=== PATIENT | female | born 1945 | race Caucasian/White ===

== ENCOUNTER 2016-05-27 12:45 | Inpatient (IN) | payer OTHER ==
[~2016-05-27] VITALS: Ht 160 cm; Wt 85.7 kg
[2016-05-27 13:09] VITALS: BP 147/85; PULSE 101; RESP 16; TEMP 98.2; O2SAT 96
[2016-05-27] MEDS ORDERED: CEFAZOLIN 1 GM IVPB PREMIX 50 ML IV ONE (14:00)
[2016-05-27] MEDS ORDERED: VANCOMYCIN HCL 1,000 MG in NS 250 ML IV ONE (14:00)
[2016-05-27 14:23] LABS: BASOPHILS % (AUTO) 0.3 % (0.0-2.0); EOSINOPHILS # (AUTO) 0.1 K/uL (0.0-0.4); EOSINOPHILS % (AUTO) 0.9 % (0.0-4.0); HEMOGLOBIN 10.8 g/dL (12.0-16.0); LYMPHOCYTES # (AUTO) 1.6 K/uL (1.0-5.5); LYMPHOCYTES % (AUTO) 22.4 % (20.5-51.5); MEAN CORPUSCULAR HEMOGLOBIN 27 pg (27-31); MEAN CORPUSCULAR HGB CONC 32 % (32-36); MEAN CORPUSCULAR VOLUME 85 fL (79.0-98.0); MONOCYTES # (AUTO) 0.6 K/uL (0.0-1.0); MONOCYTES % (AUTO) 8.1 % (1.7-9.3); NEUTROPHILS # (AUTO) 4.9 K/uL (1.8-7.7); NEUTROPHILS % (AUTO) 68.3 % (40.0-70.0); PLATELET COUNT (AUTO) 295 K/uL (130-430); RED BLOOD CELL COUNT(AUTO) 4.01 MIL/uL (4.2-6.2); RED CELL DISTRIBUTION WIDTH 16.8 % (9.0-15.0); WHITE BLOOD COUNT (AUTO) 7.2 K/uL (4.8-10.8)
[2016-05-27 14:38] LABS: ANION GAP 10 (5-15); CALCIUM 9.2 mg/dL (8.4-11.0); CHLORIDE 98 mmol/L (98-107); CREATININE 0.75 mg/dL (0.55-1.30); GLUCOSE 107 mg/dL (70-99); SODIUM SERUM 138 mmol/L (136-145); UREA NITROGEN, BLOOD 16 mg/dL (8-21)
[2016-05-27 14:40] LABS: PROTHROMBIN TIME 10.9 SECS (9.5-12.5)
[2016-05-27 14:49] VITALS: BP 144/96; PULSE 89; RESP 20; TEMP 97.4; O2SAT 94
[2016-05-27 14:49] LABS: ALANINE AMINOTRANSFERASE 26 U/L (12-78); ALBUMIN 3.6 g/dL (3.4-4.8); ASPARTATE AMINOTRANSFERASE 17 U/L (10-37); LIPASE 115 U/L (73-393); TOTAL BILIRUBIN 0.3 mg/dL (0.0-1.0); TOTAL PROTEIN, SERUM 8.8 g/dL (6.4-8.3)
[2016-05-27] MEDS ORDERED: LEVOFLOXACIN 500 MG/D5W 100 ML IV ONE (15:30)
[2016-05-27 15:38] VITALS: BP 144/96; PULSE 88; RESP 20; TEMP 97.4; O2SAT 94
[2016-05-27] MEDS ORDERED: HYDROCORTISONE SOD SUCC 100 MG/2 ML VIAL IVP ONE (16:00)
[2016-05-27] MEDS ORDERED: ACETAMINOPHEN 650 MG/20.3 ML UDC PO PRN (16:00)
[2016-05-27] MEDS ORDERED: METO-290 PO (16:08)
[2016-05-27] MEDS ORDERED: SULF500T8 PO (16:08)
[2016-05-27] MEDS ORDERED: POTA10CA68 PO (16:08)
[2016-05-27] MEDS ORDERED: PRED5TAB PO (16:08)
[2016-05-27] MEDS ORDERED: FOLI-43 PO (16:08)
[2016-05-27] MEDS ORDERED: DULO60CA41 PO (16:08)
[2016-05-27] MEDS ORDERED: OXYB10TA4 PO (16:08)
[2016-05-27] MEDS ORDERED: AMLO5TAB4 PO (16:08)
[2016-05-27] MEDS ORDERED: TRAM50TA2 PO (16:08)
[2016-05-27] MEDS ORDERED: FURO-150 PO (16:08)
[2016-05-27] MEDS ORDERED: PRO40 PO ×2 (16:08→16:10)
[2016-05-27] MEDS ORDERED: TRAZ-126 PO (16:08)
[2016-05-27] MEDS: PANTOPRAZOLE SODIUM 40 MG TAB PO SCH (16:25)
[2016-05-27] MEDS ORDERED: PANTOPRAZOLE SODIUM 40 MG TAB ONE (16:29)
[2016-05-27] MEDS ORDERED: METOCLOPRAMIDE HCL 10 MG TABLET PO PRN (17:30)
[2016-05-27 19:30] VITALS: BP 157/80; PULSE 102; RESP 18; TEMP 96.6; O2SAT 92
[2016-05-27] MEDS ORDERED: HYDROcodone/ACETAMIN 5-325 MG TAB (NORCO/ VICODIN) PO PRN ×2 (21:45)
[2016-05-27 21:51] LABS: BILIRUBIN,URINE NEGATIVE (NEGATIVE); BLOOD, URINE NEGATIVE (NEGATIVE); CLARITY/URINE CLEAR (CLEAR); COLOR,URINE YELLOW (YELLOW); GLUCOSE,URINE NEGATIVE (NEGATIVE); KETONES,URINE NEGATIVE (NEGATIVE); LEUKOCYTE ESTERASE ,URINE 2+ (NEGATIVE); NITRITE, URINE NEGATIVE (NEGATIVE); PROTEIN URINE NEGATIVE (NEGATIVE); UROBILINOGEN,URINE 0.2 (0.2-1.0)
[2016-05-27 21:57] LABS: BACTERIA,URINE FEW /HPF (None Seen); RBC,URINE 0-3 /HPF (0-3); WBC,URINE 20-50 /HPF (0-3)
[2016-05-27 21:58] LABS: MUCUS,URINE None Seen /LPF (None Seen)
[2016-05-27] MEDS: HYDROCORTISONE SOD SUCC 100 MG/2 ML VIAL IVP SCH (22:09)
[2016-05-27] MEDS: sulfASALAZINE 500 MG TABLET (AZULFIDINE) PO SCH (22:09)
[2016-05-27] MEDS: traZODone HCL 50 MG TABLET (DESYREL) PO SCH (22:09)
[2016-05-27] MEDS: OXYBUTYNIN CHLORIDE 5 MG TABLET PO SCH (22:10)
[2016-05-27] MEDS: HYDROcodone/ACETAMIN 5-325 MG TAB (NORCO/ VICODIN) PO PRN (22:14)
[2016-05-28] VITALS (7 sets, daily range): BP systolic 145–154; BP diastolic 74–98; PULSE 85–100; RESP 16–19; TEMP 96.8–98; O2SAT 92–98
[2016-05-28 08:19] LABS: BASOPHILS % (AUTO) 0.3 % (0.0-2.0); EOSINOPHILS % (AUTO) 0.1 % (0.0-4.0); HEMATOCRIT 33.1 % (36-48); HEMOGLOBIN 10.3 g/dL (12.0-16.0); LYMPHOCYTES # (AUTO) 1.6 K/uL (1.0-5.5); LYMPHOCYTES % (AUTO) 27.9 % (20.5-51.5); MEAN CORPUSCULAR HEMOGLOBIN 27 pg (27-31); MEAN CORPUSCULAR HGB CONC 31 % (32-36); MEAN CORPUSCULAR VOLUME 85 fL (79.0-98.0); MONOCYTES # (AUTO) 0.6 K/uL (0.0-1.0); NEUTROPHILS # (AUTO) 3.5 K/uL (1.8-7.7); NEUTROPHILS % (AUTO) 61.7 % (40.0-70.0); PLATELET COUNT (AUTO) 258 K/uL (130-430); RED BLOOD CELL COUNT(AUTO) 3.88 MIL/uL (4.2-6.2); RED CELL DISTRIBUTION WIDTH 16.8 % (9.0-15.0); WHITE BLOOD COUNT (AUTO) 5.7 K/uL (4.8-10.8)
[2016-05-28 08:45] LABS: ALANINE AMINOTRANSFERASE 20 U/L (12-78); ALBUMIN 2.8 g/dL (3.4-4.8); ANION GAP 6 (5-15); ASPARTATE AMINOTRANSFERASE 14 U/L (10-37); CALCIUM 8.9 mg/dL (8.4-11.0); CHLORIDE 101 mmol/L (98-107); GLUCOSE 114 mg/dL (70-99); POTASSIUM 3.6 mmol/L (3.5-5.1); SODIUM SERUM 139 mmol/L (136-145); THYROID STIMULATING HORMONE 0.35 uIu/mL (0.34-4.82); TOTAL BILIRUBIN 0.3 mg/dL (0.0-1.0); TOTAL PROTEIN, SERUM 7.6 g/dL (6.4-8.3); UREA NITROGEN, BLOOD 15 mg/dL (8-21)
[2016-05-28] MEDS: sulfASALAZINE 500 MG TABLET (AZULFIDINE) PO SCH ×3 (08:59→20:48)
[2016-05-28] MEDS: FOLIC ACID 1 MG TABLET PO SCH (08:59)
[2016-05-28] MEDS: OXYBUTYNIN CHLORIDE 5 MG TABLET PO SCH ×2 (09:00→20:48)
[2016-05-28] MEDS: amLODIPine BESYLATE 5 MG TABLET PO SCH (09:00)
[2016-05-28] MEDS: DULoxetine HCL 30 MG CAPSULE.DR (CYMBALTA) PO SCH (09:00)
[2016-05-28] MEDS ORDERED: OXYBUTYNIN CHLORIDE 5 MG XL TAB PO SCH (09:00)
[2016-05-28] MEDS: FUROSEMIDE 20 MG TABLET PO SCH (09:02)
[2016-05-28] MEDS: HYDROCORTISONE SOD SUCC 100 MG/2 ML VIAL IVP SCH ×2 (09:05→20:48)
[2016-05-28] MEDS: PANTOPRAZOLE SODIUM 40 MG TAB PO SCH (09:14)
[2016-05-28] MEDS: CEFTAROLINE FOSAMIL ACETATE 600 MG in NS 250 ML IV SCH ×2 (14:47→20:47)
[2016-05-28] MEDS: HYDROcodone/ACETAMIN 5-325 MG TAB (NORCO/ VICODIN) PO PRN (14:48)
[2016-05-28] MEDS: ALBUTEROL SULFATE 0.083% 2.5 MG/3 ML VIAL.NEB INH SCH ×2 (15:00→23:00)
[2016-05-28] MEDS: traZODone HCL 50 MG TABLET (DESYREL) PO SCH (20:48)
[2016-05-29] VITALS (7 sets, daily range): BP systolic 124–178; BP diastolic 70–98; PULSE 88–103; RESP 18–20; TEMP 96.7–99.8; O2SAT 90–98
[2016-05-29] MEDS: ALBUTEROL SULFATE 0.083% 2.5 MG/3 ML VIAL.NEB INH SCH ×3 (07:35→23:00)
[2016-05-29] MEDS: CEFTAROLINE FOSAMIL ACETATE 600 MG in NS 250 ML IV SCH ×2 (08:15→20:47)
[2016-05-29] MEDS: PANTOPRAZOLE SODIUM 40 MG TAB PO SCH (08:16)
[2016-05-29] MEDS: HYDROCORTISONE SOD SUCC 100 MG/2 ML VIAL IVP SCH (08:16)
[2016-05-29] MEDS: OXYBUTYNIN CHLORIDE 5 MG TABLET PO SCH ×2 (08:16→20:47)
[2016-05-29] MEDS: FOLIC ACID 1 MG TABLET PO SCH (08:16)
[2016-05-29] MEDS: FUROSEMIDE 20 MG TABLET PO SCH (08:17)
[2016-05-29] MEDS: sulfASALAZINE 500 MG TABLET (AZULFIDINE) PO SCH ×3 (08:17→20:47)
[2016-05-29] MEDS: amLODIPine BESYLATE 5 MG TABLET PO SCH (08:18)
[2016-05-29] MEDS: DULoxetine HCL 30 MG CAPSULE.DR (CYMBALTA) PO SCH (08:18)
[2016-05-29] MEDS ORDERED: cloNIDine HCL 0.1 MG TABLET PO PRN (11:30)
[2016-05-29] MEDS ORDERED: VALSARTAN 80 MG TABLET (DIOVAN) PO ONE (14:30)
[2016-05-29] MEDS: VALSARTAN 80 MG TABLET (DIOVAN) PO SCH ×2 (14:56→20:47)
[2016-05-29] MEDS: traZODone HCL 50 MG TABLET (DESYREL) PO SCH (20:47)
[2016-05-30] VITALS: BP 135/80; PULSE 88; RESP 18; TEMP 97.9; O2SAT 95
[2016-05-30 04:16] VITALS: BP 146/88; PULSE 98; RESP 20; TEMP 97.7; O2SAT 96
[2016-05-30 05:22] LABS: EOSINOPHILS # (AUTO) 0.2 K/uL (0.0-0.4)
[2016-05-30 05:29] LABS: BASOPHILS % (AUTO) 0.6 % (0.0-2.0); EOSINOPHILS % (AUTO) 2.6 % (0.0-4.0); HEMATOCRIT 34.3 % (36-48); HEMOGLOBIN 10.8 g/dL (12.0-16.0); LYMPHOCYTES # (AUTO) 1.8 K/uL (1.0-5.5); LYMPHOCYTES % (AUTO) 28.8 % (20.5-51.5); MEAN CORPUSCULAR HEMOGLOBIN 27 pg (27-31); MEAN CORPUSCULAR HGB CONC 32 % (32-36); MEAN CORPUSCULAR VOLUME 85 fL (79.0-98.0); MONOCYTES # (AUTO) 0.8 K/uL (0.0-1.0); MONOCYTES % (AUTO) 12.1 % (1.7-9.3); NEUTROPHILS # (AUTO) 3.5 K/uL (1.8-7.7); NEUTROPHILS % (AUTO) 55.9 % (40.0-70.0); PLATELET COUNT (AUTO) 259 K/uL (130-430); RED BLOOD CELL COUNT(AUTO) 4.04 MIL/uL (4.2-6.2); RED CELL DISTRIBUTION WIDTH 16.4 % (9.0-15.0); WHITE BLOOD COUNT (AUTO) 6.3 K/uL (4.8-10.8)
[2016-05-30 05:40] LABS: ANION GAP 7 (5-15); CALCIUM 8.9 mg/dL (8.4-11.0); CHLORIDE 103 mmol/L (98-107); GLUCOSE 110 mg/dL (70-99); POTASSIUM 3.2 mmol/L (3.5-5.1); SODIUM SERUM 143 mmol/L (136-145); UREA NITROGEN, BLOOD 17 mg/dL (8-21)
[2016-05-30 05:45] LABS: PROTHROMBIN TIME 10.9 SECS (9.5-12.5)
[2016-05-30] MEDS: DULoxetine HCL 30 MG CAPSULE.DR (CYMBALTA) PO SCH (07:52)
[2016-05-30] MEDS: OXYBUTYNIN CHLORIDE 5 MG TABLET PO SCH ×2 (07:52→20:58)
[2016-05-30] MEDS: FOLIC ACID 1 MG TABLET PO SCH (07:52)
[2016-05-30] MEDS: sulfASALAZINE 500 MG TABLET (AZULFIDINE) PO SCH ×3 (07:52→20:56)
[2016-05-30] MEDS: VALSARTAN 80 MG TABLET (DIOVAN) PO SCH ×2 (07:52→20:58)
[2016-05-30] MEDS: FUROSEMIDE 20 MG TABLET PO SCH (07:53)
[2016-05-30] MEDS: amLODIPine BESYLATE 5 MG TABLET PO SCH (07:53)
[2016-05-30] MEDS: PREDNISONE 10 MG TABLET PO SCH (07:53)
[2016-05-30] MEDS: PANTOPRAZOLE SODIUM 40 MG TAB PO SCH (07:53)
[2016-05-30] MEDS ORDERED: KCL IV ONE (08:30)
[2016-05-30] MEDS ORDERED: POTASSIUM CHLORIDE IV ONE (09:00)
[2016-05-30] MEDS ORDERED: NS 0.45% IV ONE (09:00)
[2016-05-30] MEDS: CEFTAROLINE FOSAMIL ACETATE 600 MG in NS 250 ML IV SCH ×2 (11:05→20:56)
[2016-05-30 12:00] VITALS: BP 151/97; PULSE 96; RESP 16; TEMP 97.4; O2SAT 98
[2016-05-30] MEDS ORDERED: LABETALOL 100 MG/ 20ML VIAL ONE (14:00)
[2016-05-30] MEDS ORDERED: NS IRRIG SOLN 1000 ML IR ONE (14:00)
[2016-05-30] MEDS ORDERED: MIDAZOLAM HCL 5 MG/5 ML VIAL ONE (14:00)
[2016-05-30] MEDS ORDERED: MEPERIDINE HCL/PF 100 MG/ML AMP ONE (14:00)
[2016-05-30] MEDS ORDERED: PROPOFOL 200MG/ 20ML VIAL (DIPRIVAN) IV ONE (14:00)
[2016-05-30] MEDS ORDERED: LR 1,000 ML IV.SOLN IV ONE (14:00)
[2016-05-30] MEDS ORDERED: LIDOCAINE 2%, 20 ML MDV ONE (14:00)
[2016-05-30] MEDS ORDERED: LR 1,000 ML IV ONE (14:53)
[2016-05-30] MEDS ORDERED: KETOROLAC TROMETHAMINE 30 MG VIAL IM PRN (15:00)
[2016-05-30] MEDS ORDERED: fentaNYL CITRATE/PF 100 MCG/2 ML AMP IVP PRN (15:00)
[2016-05-30] MEDS ORDERED: ONDANSETRON HCL 4 MG/2 ML VIAL IVP PRN ×2 (15:00)
[2016-05-30] MEDS ORDERED: ePHEDrine sulfate 50 MG/ML VIAL IVP PRN (15:00)
[2016-05-30] MEDS ORDERED: NALBUPHINE HCL 10 MG/ML AMP IVP PRN (15:00)
[2016-05-30] MEDS ORDERED: NALOXONE HCL 0.4 MG/ML AMP (NARCAN) IVP PRN (15:00)
[2016-05-30] MEDS ORDERED: DIPHENHYDRAMINE INJ 50 MG/ML VIAL IVP PRN (15:00)
[2016-05-30] MEDS: HYDROcodone/ACETAMIN 5-325 MG TAB (NORCO/ VICODIN) PO PRN (15:47)
[2016-05-30 16:22] VITALS: BP 159/79; PULSE 71; RESP 20; TEMP 99; O2SAT 96
[2016-05-30 17:05] LABS: INR 1.1 (0.8-1.2); PROTHROMBIN TIME 11.5 SECS (9.5-12.5)
[2016-05-30 19:00] VITALS: BP 139/85; PULSE 74; RESP 16; TEMP 97.3; O2SAT 95
[2016-05-30 20:00] VITALS: BP 156/83; PULSE 84; RESP 16; TEMP 97.6; O2SAT 95
[2016-05-30] MEDS: HEPARIN SODIUM,PORCINE 5000 UNITS/ML VIAL SUBCUT SCH (20:55)
[2016-05-30] MEDS: traZODone HCL 50 MG TABLET (DESYREL) PO SCH (20:57)
[2016-05-30] MEDS: ALBUTEROL SULFATE 0.083% 2.5 MG/3 ML VIAL.NEB INH SCH (23:00)
[2016-05-31] VITALS: BP 143/84; PULSE 85; RESP 16; TEMP 97.5; O2SAT 94
[2016-05-31 04:00] VITALS: BP 147/92; PULSE 93; RESP 16; TEMP 97.6; O2SAT 93
[2016-05-31] MEDS: ALBUTEROL SULFATE 0.083% 2.5 MG/3 ML VIAL.NEB INH SCH ×2 (07:00→14:56)
[2016-05-31 07:48] LABS: BASOPHILS % (AUTO) 0.6 % (0.0-2.0); EOSINOPHILS # (AUTO) 0.2 K/uL (0.0-0.4); EOSINOPHILS % (AUTO) 2.3 % (0.0-4.0); HEMATOCRIT 39.7 % (36-48); HEMOGLOBIN 12.2 g/dL (12.0-16.0); LYMPHOCYTES % (AUTO) 31.2 % (20.5-51.5); MEAN CORPUSCULAR HEMOGLOBIN 26 pg (27-31); MEAN CORPUSCULAR HGB CONC 31 % (32-36); MEAN CORPUSCULAR VOLUME 86 fL (79.0-98.0); MONOCYTES # (AUTO) 0.6 K/uL (0.0-1.0); MONOCYTES % (AUTO) 8.8 % (1.7-9.3); NEUTROPHILS # (AUTO) 3.8 K/uL (1.8-7.7); NEUTROPHILS % (AUTO) 57.1 % (40.0-70.0); PLATELET COUNT (AUTO) 359 K/uL (130-430); RED BLOOD CELL COUNT(AUTO) 4.63 MIL/uL (4.2-6.2); RED CELL DISTRIBUTION WIDTH 17.2 % (9.0-15.0); WHITE BLOOD COUNT (AUTO) 6.6 K/uL (4.8-10.8)
[2016-05-31 08:04] VITALS: BP 151/81; PULSE 120
[2016-05-31 08:08] VITALS: BP 151/81; PULSE 99; RESP 18; TEMP 97.9; O2SAT 96
[2016-05-31 08:29] LABS: ANION GAP 9 (5-15); CALCIUM 9.8 mg/dL (8.4-11.0); CHLORIDE 102 mmol/L (98-107); GLUCOSE 130 mg/dL (70-99); POTASSIUM 3.5 mmol/L (3.5-5.1); SODIUM SERUM 140 mmol/L (136-145); UREA NITROGEN, BLOOD 14 mg/dL (8-21)
[2016-05-31] MEDS: PANTOPRAZOLE SODIUM 40 MG TAB PO SCH (08:29)
[2016-05-31] MEDS: CEFTAROLINE FOSAMIL ACETATE 600 MG in NS 250 ML IV SCH (08:29)
[2016-05-31] MEDS: sulfASALAZINE 500 MG TABLET (AZULFIDINE) PO SCH ×2 (08:29→15:00)
[2016-05-31] MEDS: amLODIPine BESYLATE 5 MG TABLET PO SCH (08:30)
[2016-05-31] MEDS: FOLIC ACID 1 MG TABLET PO SCH (08:30)
[2016-05-31] MEDS: VALSARTAN 80 MG TABLET (DIOVAN) PO SCH (08:30)
[2016-05-31] MEDS: DULoxetine HCL 30 MG CAPSULE.DR (CYMBALTA) PO SCH (08:31)
[2016-05-31] MEDS: FUROSEMIDE 20 MG TABLET PO SCH (08:31)
[2016-05-31] MEDS: OXYBUTYNIN CHLORIDE 5 MG TABLET PO SCH (08:31)
[2016-05-31] MEDS: PREDNISONE 10 MG TABLET PO SCH (08:31)
[2016-05-31] MEDS: HEPARIN SODIUM,PORCINE 5000 UNITS/ML VIAL SUBCUT SCH (08:34)
[2016-05-31 12:00] VITALS: BP 154/79; PULSE 111; RESP 18; TEMP 98.2; O2SAT 94
[2016-05-31] MEDS ORDERED: ROCPM1 IV (13:50)
[2016-05-31 14:12] VITALS: BP 154/79; PULSE 111; RESP 18; TEMP 98.2; O2SAT 94
[2016-05-31 15:33] VITALS: Ht 160 cm; Wt 85.7 kg
== END 2016-05-31 16:10 | disposition home health service (06) | DRG 464 ==
LOC: SED 12:45 → SMU 14:06 → STU 14:40 → SMU 05-29 12:00
PROVIDERS: ADMIT Internal Medicine; ATTEND Internal Medicine
PROC: 0S9D3ZZ Drainage of Left Knee Joint, Percutaneous Approach (ICD-10-PCS; principal; 2016-05-27)
PROC: 0JBP0ZZ Excision of Left Lower Leg Subcutaneous Tissue and Fascia, Open Approach (ICD-10-PCS; 2016-05-30)
DX: M71.162 Other infective bursitis, left knee (principal); N39.0 Urinary tract infection, site not specified; M79.7 Fibromyalgia; M06.9 Rheumatoid arthritis, unspecified; J20.9 Acute bronchitis, unspecified; K21.9 Gastro-esophageal reflux disease without esophagitis; I87.8 Other specified disorders of veins; I73.9 Peripheral vascular disease, unspecified; D50.9 Iron deficiency anemia, unspecified; B96.4 Proteus (mirabilis) (morganii) as the cause of diseases classified elsewhere; F32.9 Major depressive disorder, single episode, unspecified; M19.90 Unspecified osteoarthritis, unspecified site; H40.9 Unspecified glaucoma; I10 Essential (primary) hypertension; Z96.643 Presence of artificial hip joint, bilateral; Z96.653 Presence of artificial knee joint, bilateral; Z79.52 Long term (current) use of systemic steroids; Z82.0 Family history of epilepsy and other diseases of the nervous system; Z87.11 Personal history of peptic ulcer disease; Z88.0 Allergy status to penicillin; Z90.49 Acquired absence of other specified parts of digestive tract; Z90.710 Acquired absence of both cervix and uterus; Z98.1 Arthrodesis status; Z82.49 Family history of ischemic heart disease and other diseases of the circulatory system
CPT/HCPCS: 36415; 71010; 73590-TC; 80048; 80053; 81000-TC; 83605; 83690-TC; 83735-TC; 84443-TC; 85025; 85610-TC; 85651-TC; 85730-TC; 86140; 87040-TC; 87070; 87070-TC; 87075-TC; 87081; 87086; 87101; 87116; 87186-TC; 93005; 93971; 96365; 96368; 99285; J0690; J0696; J0712; J1644; J1720; J1885; J1956; J2001; J2175; J2250; J2704; J3370; J3480; J3490; J7040; J7050; J7060; J7120; J7512

== ENCOUNTER 2016-07-04 09:53 | Inpatient (IN) | payer OTHER ==
[~2016-07-04] VITALS: Ht 162.6 cm; Wt 88.5 kg
[~2016-07-04 09:53] MED LIST: AMLO5TAB4 PO; DULO60CA41 PO; FOLI-43 PO; FURO-150 PO; METO-290 PO; OXYB10TA4 PO; POTA10CA68 PO; PRED5TAB PO; PRO40 PO; ROCPM1 IV; SULF500T8 PO; TRAM50TA2 PO; TRAZ-126 PO
[2016-07-04 10:50] LABS: BASOPHILS % (AUTO) 0.5 % (0.0-2.0); EOSINOPHILS # (AUTO) 0.1 K/uL (0.0-0.4); EOSINOPHILS % (AUTO) 1.3 % (0.0-4.0); HEMATOCRIT 33.6 % (36-48); HEMOGLOBIN 10.3 g/dL (12.0-16.0); LYMPHOCYTES # (AUTO) 1.5 K/uL (1.0-5.5); MEAN CORPUSCULAR HEMOGLOBIN 26 pg (27-31); MEAN CORPUSCULAR HGB CONC 31 % (32-36); MEAN CORPUSCULAR VOLUME 84 fL (79.0-98.0); MONOCYTES # (AUTO) 0.7 K/uL (0.0-1.0); MONOCYTES % (AUTO) 8.3 % (1.7-9.3); NEUTROPHILS # (AUTO) 6.1 K/uL (1.8-7.7); NEUTROPHILS % (AUTO) 71.9 % (40.0-70.0); PLATELET COUNT (AUTO) 422 K/uL (130-430); RED BLOOD CELL COUNT(AUTO) 3.98 MIL/uL (4.2-6.2); RED CELL DISTRIBUTION WIDTH 16.6 % (9.0-15.0); WHITE BLOOD COUNT (AUTO) 8.4 K/uL (4.8-10.8)
[2016-07-04 10:59] LABS: ANION GAP 4 (5-15); CALCIUM 9.4 mg/dL (8.4-11.0); CHLORIDE 100 mmol/L (98-107); CREATININE 0.88 mg/dL (0.55-1.30); GLUCOSE 129 mg/dL (70-99); POTASSIUM 3.9 mmol/L (3.5-5.1); SODIUM SERUM 137 mmol/L (136-145); UREA NITROGEN, BLOOD 14 mg/dL (8-21)
[2016-07-04 11:20] LABS: C-REACTIVE PROTEIN QUANT 21.7 mg/dL (0-0.5)
[2016-07-04 11:43] LABS: ERYTHROCYTE SEDIMENTATION RATE 98 MM/HR (0-20)
[2016-07-04] MEDS ORDERED: HYDROCORTISONE SOD SUCC 100 MG/2 ML VIAL IVP ONE ×2 (12:30→13:50)
[2016-07-04] MEDS ORDERED: LOSA50TA3 PO (12:41)
[2016-07-04] MEDS ORDERED: METO-442 PO (12:41)
[2016-07-04] MEDS ORDERED: AZU500 PO (12:43)
[2016-07-04] MEDS ORDERED: MIDAZOLAM HCL 5 MG/5 ML VIAL IVP ONE (13:50)
[2016-07-04] MEDS ORDERED: SEVOFLURANE 15 MIN GAS INH ONE (13:50)
[2016-07-04] MEDS ORDERED: ROCURONIUM BROMIDE 10 MG/ML (ZEMURON) IV ONE (13:50)
[2016-07-04] MEDS ORDERED: DEXAMETHASONE SOD PHOSPHATE 4 MG/ML VIAL IVP ONE (13:50)
[2016-07-04] MEDS ORDERED: fentaNYL CITRATE 250 MCG/5 ML AMP IV ONE (13:50)
[2016-07-04] MEDS ORDERED: PROPOFOL 200MG/ 20ML VIAL (DIPRIVAN) IV ONE (13:50)
[2016-07-04] MEDS ORDERED: LR 1,000 ML IV.SOLN IV ONE (13:50)
[2016-07-04] MEDS ORDERED: ONDANSETRON HCL 4 MG/2 ML VIAL IVP ONE (13:50)
[2016-07-04] MEDS ORDERED: KETOROLAC TROMETHAMINE 15 MG VIAL IVP ONE (13:50)
[2016-07-04] MEDS ORDERED: POLYMYXIN 500,000/BACIT.10,000 UNITS in NS IRR 1 L IR ONE (14:14)
[2016-07-04] MEDS ORDERED: MILK OF MAGNESIA 30 ML UDC PO PRN (15:45)
[2016-07-04] MEDS ORDERED: METOCLOPRAMIDE HCL 10 MG TABLET PO PRN (15:45)
[2016-07-04] MEDS ORDERED: ACETAMINOPHEN 500 MG TABLET PO PRN (15:45)
[2016-07-04] MEDS ORDERED: LR 1,000 ML IV SCH (15:57)
[2016-07-04] MEDS ORDERED: HYDROmorphone 1 MG INJ. 1 MG/ML AMPUL IVP PRN (16:00)
[2016-07-04] MEDS ORDERED: MEPERIDINE HCL/PF 25 MG/ML DISP.SYRIN IVP PRN (16:00)
[2016-07-04] MEDS ORDERED: HYDROmorphone 2 MG/ML VIAL IVP PRN ×2 (16:00)
[2016-07-04] MEDS ORDERED: HYDROmorphone 1 MG INJ. 1 MG/ML AMPUL ONE ×2 (16:09→16:21)
[2016-07-04 17:33] VITALS: BP_SYST 156
[2016-07-04] MEDS: D5/0.45 NS 1,000 ML IV SCH (18:10)
[2016-07-04] MEDS: PANTOPRAZOLE SODIUM 40 MG TAB PO SCH (18:57)
[2016-07-04 20:00] VITALS: BP_SYST 145
[2016-07-04] MEDS: CEFTAROLINE FOSAMIL ACETATE 600 MG in NS 250 ML IV SCH (21:00)
[2016-07-04] MEDS ORDERED: sulfASALAZINE 500 MG TABLET (AZULFIDINE) PO SCH ×2 (21:00)
[2016-07-04] MEDS: traMADol HCL HCL 50 MG TABLET (ULTRAM) PO SCH (21:01)
[2016-07-04] MEDS: HYDROCORTISONE SOD SUCC 100 MG/2 ML VIAL IVP SCH (21:01)
[2016-07-04] MEDS: SENNOSIDES 8.6 MG TABLET PO SCH (21:01)
[2016-07-04] MEDS: ASCORBIC ACID 500 MG TABLET PO SCH (21:01)
[2016-07-04] MEDS: OXYBUTYNIN CHLORIDE 5 MG TABLET PO SCH (21:02)
[2016-07-04] MEDS: traZODone HCL 50 MG TABLET (DESYREL) PO SCH (21:02)
[2016-07-04 22:34] VITALS: BP_SYST 132
[2016-07-05 03:59] VITALS: BP_SYST 152
[2016-07-05 06:32] LABS: BASOPHILS % (AUTO) 0.1 % (0.0-2.0); EOSINOPHILS % (AUTO) 0.1 % (0.0-4.0); HEMATOCRIT 27.8 % (36-48); HEMOGLOBIN 8.7 g/dL (12.0-16.0); LYMPHOCYTES # (AUTO) 0.8 K/uL (1.0-5.5); LYMPHOCYTES % (AUTO) 15.1 % (20.5-51.5); MEAN CORPUSCULAR HEMOGLOBIN 27 pg (27-31); MEAN CORPUSCULAR HGB CONC 31 % (32-36); MEAN CORPUSCULAR VOLUME 85 fL (79.0-98.0); MONOCYTES # (AUTO) 0.3 K/uL (0.0-1.0); MONOCYTES % (AUTO) 5.3 % (1.7-9.3); NEUTROPHILS # (AUTO) 4.5 K/uL (1.8-7.7); NEUTROPHILS % (AUTO) 79.4 % (40.0-70.0); PLATELET COUNT (AUTO) 338 K/uL (130-430); RED BLOOD CELL COUNT(AUTO) 3.26 MIL/uL (4.2-6.2); RED CELL DISTRIBUTION WIDTH 16.5 % (9.0-15.0); WHITE BLOOD COUNT (AUTO) 5.6 K/uL (4.8-10.8)
[2016-07-05] MEDS: HYDROCORTISONE SOD SUCC 100 MG/2 ML VIAL IVP SCH ×3 (06:32→20:49)
[2016-07-05] MEDS: PANTOPRAZOLE SODIUM 40 MG TAB PO SCH ×2 (06:32→16:45)
[2016-07-05] MEDS ORDERED: MORPHINE 2 MG/ML INJ. SYRINGE IVP ONE (07:00)
[2016-07-05 08:00] VITALS: BP_SYST 146
[2016-07-05] MEDS: D5/0.45 NS 1,000 ML IV SCH ×2 (08:39→11:35)
[2016-07-05] MEDS: DULoxetine HCL 30 MG CAPSULE.DR (CYMBALTA) PO SCH (08:47)
[2016-07-05] MEDS: CEFTAROLINE FOSAMIL ACETATE 600 MG in NS 250 ML IV SCH ×2 (08:47→20:49)
[2016-07-05] MEDS: LOSARTAN POTASSIUM 50 MG TABLET (COZAAR) PO SCH (08:48)
[2016-07-05] MEDS: METOPROLOL TARTRATE 25 MG TABLET PO SCH ×2 (08:48→20:50)
[2016-07-05] MEDS: MULTIVITAMINS TAB 1 TABLET PO SCH (08:48)
[2016-07-05] MEDS: ASCORBIC ACID 500 MG TABLET PO SCH ×2 (08:49→20:50)
[2016-07-05] MEDS: amLODIPine BESYLATE 5 MG TABLET PO SCH (08:49)
[2016-07-05] MEDS: FOLIC ACID 1 MG TABLET PO SCH (08:49)
[2016-07-05] MEDS: traMADol HCL HCL 50 MG TABLET (ULTRAM) PO SCH ×3 (08:49→20:51)
[2016-07-05] MEDS: OXYBUTYNIN CHLORIDE 5 MG TABLET PO SCH ×2 (08:49→20:51)
[2016-07-05] MEDS ORDERED: POTASSIUM CHLORIDE 20 MEQ/PKT PACKET PO SCH (09:00)
[2016-07-05] MEDS ORDERED: POTASSIUM CHLORIDE 20 MEQ PO SCH (09:00)
[2016-07-05] MEDS ORDERED: FUROSEMIDE 20 MG TABLET PO SCH (09:00)
[2016-07-05] MEDS ORDERED: METOPROLOL TARTRATE 50 MG TABLET PO SCH (09:00)
[2016-07-05] MEDS ORDERED: OXYBUTYNIN CHLORIDE 5 MG XL TAB PO SCH (09:00)
[2016-07-05] MEDS ORDERED: PREDNISONE 5 MG TABLET PO SCH (09:00)
[2016-07-05 10:17] LABS: ALANINE AMINOTRANSFERASE 143 U/L (12-78); ALBUMIN 2.4 g/dL (3.4-4.8); ANION GAP 2 (5-15); ASPARTATE AMINOTRANSFERASE 97 U/L (10-37); CALCIUM 8.5 mg/dL (8.4-11.0); CHLORIDE 103 mmol/L (98-107); CREATININE 0.76 mg/dL (0.55-1.30); GLUCOSE 160 mg/dL (70-99); POTASSIUM 4.5 mmol/L (3.5-5.1); SODIUM SERUM 139 mmol/L (136-145); TOTAL BILIRUBIN 0.2 mg/dL (0.0-1.0); UREA NITROGEN, BLOOD 20 mg/dL (8-21)
[2016-07-05 12:22] VITALS: BP_SYST 146
[2016-07-05 16:00] VITALS: BP_SYST 154
[2016-07-05] MEDS: MORPHINE 2 MG/ML INJ. SYRINGE IVP PRN (16:45)
[2016-07-05 20:00] VITALS: BP_SYST 141
[2016-07-05] MEDS: FERROUS SULFATE 325 MG TABLET.DR PO SCH (20:51)
[2016-07-05] MEDS: SENNOSIDES 8.6 MG TABLET PO SCH (20:51)
[2016-07-05] MEDS: traZODone HCL 50 MG TABLET (DESYREL) PO SCH (20:52)
[2016-07-06] VITALS: BP_SYST 139
[2016-07-06] MEDS: MORPHINE 2 MG/ML INJ. SYRINGE IVP PRN (02:03)
[2016-07-06 04:00] VITALS: BP_SYST 145
[2016-07-06] MEDS: PANTOPRAZOLE SODIUM 40 MG TAB PO SCH ×2 (06:10→17:13)
[2016-07-06 06:48] LABS: BASOPHILS % (AUTO) 0.2 % (0.0-2.0); EOSINOPHILS % (AUTO) 0.2 % (0.0-4.0); HEMATOCRIT 27.3 % (36-48); HEMOGLOBIN 8.7 g/dL (12.0-16.0); LYMPHOCYTES # (AUTO) 1.5 K/uL (1.0-5.5); MEAN CORPUSCULAR HEMOGLOBIN 27 pg (27-31); MEAN CORPUSCULAR HGB CONC 32 % (32-36); MEAN CORPUSCULAR VOLUME 85 fL (79.0-98.0); MONOCYTES # (AUTO) 0.4 K/uL (0.0-1.0); MONOCYTES % (AUTO) 6.2 % (1.7-9.3); NEUTROPHILS # (AUTO) 4.7 K/uL (1.8-7.7); NEUTROPHILS % (AUTO) 71.4 % (40.0-70.0); PLATELET COUNT (AUTO) 311 K/uL (130-430); RED BLOOD CELL COUNT(AUTO) 3.19 MIL/uL (4.2-6.2); RED CELL DISTRIBUTION WIDTH 16.5 % (9.0-15.0); WHITE BLOOD COUNT (AUTO) 6.6 K/uL (4.8-10.8)
[2016-07-06 07:02] LABS: ALANINE AMINOTRANSFERASE 92 U/L (12-78); ALBUMIN 2.5 g/dL (3.4-4.8); ANION GAP 5 (5-15); ASPARTATE AMINOTRANSFERASE 37 U/L (10-37); BILIRUBIN,DIRECT 0.1 mg/dL (0.0-0.3); CALCIUM 8.6 mg/dL (8.4-11.0); CHLORIDE 103 mmol/L (98-107); CREATININE 0.65 mg/dL (0.55-1.30); GLUCOSE 122 mg/dL (70-99); POTASSIUM 3.3 mmol/L (3.5-5.1); SODIUM SERUM 140 mmol/L (136-145); TOTAL BILIRUBIN 0.2 mg/dL (0.0-1.0); TOTAL PROTEIN, SERUM 7.1 g/dL (6.4-8.3); UREA NITROGEN, BLOOD 14 mg/dL (8-21)
[2016-07-06 08:50] VITALS: BP_SYST 159
[2016-07-06] MEDS: HYDROCORTISONE SOD SUCC 100 MG/2 ML VIAL IVP SCH ×2 (08:54→21:35)
[2016-07-06] MEDS: CEFTAROLINE FOSAMIL ACETATE 600 MG in NS 250 ML IV SCH ×2 (08:54→21:33)
[2016-07-06] MEDS: FERROUS SULFATE 325 MG TABLET.DR PO SCH ×2 (08:54→21:33)
[2016-07-06] MEDS: amLODIPine BESYLATE 5 MG TABLET PO SCH (08:54)
[2016-07-06] MEDS: traMADol HCL HCL 50 MG TABLET (ULTRAM) PO SCH ×3 (08:55→21:33)
[2016-07-06] MEDS: FOLIC ACID 1 MG TABLET PO SCH (08:55)
[2016-07-06] MEDS: LOSARTAN POTASSIUM 50 MG TABLET (COZAAR) PO SCH (08:55)
[2016-07-06] MEDS: DULoxetine HCL 30 MG CAPSULE.DR (CYMBALTA) PO SCH (08:55)
[2016-07-06] MEDS: METOPROLOL TARTRATE 25 MG TABLET PO SCH ×2 (08:56→21:34)
[2016-07-06] MEDS: MULTIVITAMINS TAB 1 TABLET PO SCH (08:56)
[2016-07-06] MEDS: OXYBUTYNIN CHLORIDE 5 MG TABLET PO SCH ×2 (08:56→21:34)
[2016-07-06] MEDS: ASCORBIC ACID 500 MG TABLET PO SCH ×2 (08:56→21:33)
[2016-07-06] MEDS: D5/0.45 NS 1,000 ML IV SCH (09:10)
[2016-07-06 12:25] VITALS: BP_SYST 149
[2016-07-06] MEDS ORDERED: POTASSIUM CHLORIDE 20 MEQ TAB.PRT.SR PO ONE (13:45)
[2016-07-06 16:50] VITALS: BP_SYST 148
[2016-07-06 20:00] VITALS: BP_SYST 148
[2016-07-06] MEDS: traZODone HCL 50 MG TABLET (DESYREL) PO SCH (21:34)
[2016-07-06] MEDS: SENNOSIDES 8.6 MG TABLET PO SCH (21:34)
[2016-07-07 01:00] VITALS: BP_SYST 156
[2016-07-07 05:49] VITALS: BP_SYST 150
[2016-07-07] MEDS: MORPHINE 2 MG/ML INJ. SYRINGE IVP PRN (05:49)
[2016-07-07] MEDS: PANTOPRAZOLE SODIUM 40 MG TAB PO SCH ×2 (05:52→18:45)
[2016-07-07 06:38] LABS: BASOPHILS % (AUTO) 0.3 % (0.0-2.0); EOSINOPHILS % (AUTO) 0.7 % (0.0-4.0); HEMATOCRIT 29.3 % (36-48); HEMOGLOBIN 9.2 g/dL (12.0-16.0); LYMPHOCYTES # (AUTO) 1.5 K/uL (1.0-5.5); LYMPHOCYTES % (AUTO) 25.3 % (20.5-51.5); MEAN CORPUSCULAR HEMOGLOBIN 27 pg (27-31); MEAN CORPUSCULAR HGB CONC 32 % (32-36); MEAN CORPUSCULAR VOLUME 85 fL (79.0-98.0); MONOCYTES # (AUTO) 0.5 K/uL (0.0-1.0); MONOCYTES % (AUTO) 9.2 % (1.7-9.3); NEUTROPHILS % (AUTO) 64.5 % (40.0-70.0); PLATELET COUNT (AUTO) 334 K/uL (130-430); RED BLOOD CELL COUNT(AUTO) 3.43 MIL/uL (4.2-6.2); RED CELL DISTRIBUTION WIDTH 16.4 % (9.0-15.0)
[2016-07-07 07:24] LABS: ANION GAP 6 (5-15); CALCIUM 8.7 mg/dL (8.4-11.0); CHLORIDE 103 mmol/L (98-107); GLUCOSE 113 mg/dL (70-99); POTASSIUM 3.5 mmol/L (3.5-5.1); SODIUM SERUM 141 mmol/L (136-145); UREA NITROGEN, BLOOD 15 mg/dL (8-21)
[2016-07-07 08:00] VITALS: BP_SYST 154
[2016-07-07] MEDS: MULTIVITAMINS TAB 1 TABLET PO SCH (08:54)
[2016-07-07] MEDS: FERROUS SULFATE 325 MG TABLET.DR PO SCH ×2 (08:55→21:01)
[2016-07-07] MEDS: FOLIC ACID 1 MG TABLET PO SCH (08:55)
[2016-07-07] MEDS: LOSARTAN POTASSIUM 50 MG TABLET (COZAAR) PO SCH (08:55)
[2016-07-07] MEDS: DULoxetine HCL 30 MG CAPSULE.DR (CYMBALTA) PO SCH (08:55)
[2016-07-07] MEDS: OXYBUTYNIN CHLORIDE 5 MG TABLET PO SCH ×2 (08:55→21:01)
[2016-07-07] MEDS: ASCORBIC ACID 500 MG TABLET PO SCH ×2 (08:56→21:00)
[2016-07-07] MEDS: traMADol HCL HCL 50 MG TABLET (ULTRAM) PO SCH ×3 (08:56→21:01)
[2016-07-07] MEDS: METOPROLOL TARTRATE 25 MG TABLET PO SCH ×2 (08:57→21:02)
[2016-07-07] MEDS: amLODIPine BESYLATE 5 MG TABLET PO SCH (08:57)
[2016-07-07] MEDS: HYDROCORTISONE SOD SUCC 100 MG/2 ML VIAL IVP SCH (09:14)
[2016-07-07] MEDS: CEFTAROLINE FOSAMIL ACETATE 600 MG in NS 250 ML IV SCH ×2 (09:14→21:08)
[2016-07-07 12:19] LABS: INR 1.1 (0.8-1.2); PROTHROMBIN TIME 11.5 SECS (9.5-12.5)
[2016-07-07 12:35] VITALS: BP_SYST 150
[2016-07-07 16:38] VITALS: BP_SYST 135
[2016-07-07 20:30] VITALS: BP_SYST 140
[2016-07-07] MEDS: traZODone HCL 50 MG TABLET (DESYREL) PO SCH (21:01)
[2016-07-07] MEDS: SENNOSIDES 8.6 MG TABLET PO SCH (21:02)
[2016-07-08 00:09] VITALS: BP_SYST 141
[2016-07-08 05:01] VITALS: BP_SYST 154
[2016-07-08] MEDS: PANTOPRAZOLE SODIUM 40 MG TAB PO SCH ×2 (06:36→16:07)
[2016-07-08 08:23] VITALS: BP_SYST 141
[2016-07-08] MEDS: DULoxetine HCL 30 MG CAPSULE.DR (CYMBALTA) PO SCH (08:35)
[2016-07-08] MEDS: LOSARTAN POTASSIUM 50 MG TABLET (COZAAR) PO SCH (08:35)
[2016-07-08] MEDS: traMADol HCL HCL 50 MG TABLET (ULTRAM) PO SCH ×2 (08:35→16:07)
[2016-07-08] MEDS: FERROUS SULFATE 325 MG TABLET.DR PO SCH (08:36)
[2016-07-08] MEDS: amLODIPine BESYLATE 5 MG TABLET PO SCH (08:36)
[2016-07-08] MEDS: OXYBUTYNIN CHLORIDE 5 MG TABLET PO SCH (08:36)
[2016-07-08] MEDS: FOLIC ACID 1 MG TABLET PO SCH (08:36)
[2016-07-08] MEDS: MULTIVITAMINS TAB 1 TABLET PO SCH (08:36)
[2016-07-08] MEDS: ASCORBIC ACID 500 MG TABLET PO SCH (08:36)
[2016-07-08] MEDS: METOPROLOL TARTRATE 25 MG TABLET PO SCH (08:37)
[2016-07-08] MEDS: CEFTAROLINE FOSAMIL ACETATE 600 MG in NS 250 ML IV SCH (08:59)
[2016-07-08] MEDS ORDERED: PREDNISONE 10 MG TABLET PO SCH (09:00)
[2016-07-08] MEDS ORDERED: HYDROcodone/ACETAMIN 5-325 MG TAB (NORCO/ VICODIN) PO ONE (11:45)
[2016-07-08 12:55] VITALS: BP_SYST 146
[2016-07-08 17:16] VITALS: BP_SYST 150
[2016-07-08 17:26] VITALS: BP_SYST 150
== END 2016-07-08 18:05 | disposition short-term general hospital (02) | DRG 485 ==
LOC: SDS 09:53 → SMU 17:41
PROVIDERS: ADMIT Orthopaedic Surgery; ATTEND Orthopaedic Surgery
PROC: 0S9D0ZX Drainage of Left Knee Joint, Open Approach, Diagnostic (ICD-10-PCS; 2016-07-04)
PROC: 0SBD0ZZ Excision of Left Knee Joint, Open Approach (ICD-10-PCS; principal; 2016-07-04 14:00)
DX: T84.54XA Infection and inflammatory reaction due to internal left knee prosthesis, initial encounter (principal); E43 Unspecified severe protein-calorie malnutrition; L02.416 Cutaneous abscess of left lower limb; I10 Essential (primary) hypertension; I73.9 Peripheral vascular disease, unspecified; I87.2 Venous insufficiency (chronic) (peripheral); M06.9 Rheumatoid arthritis, unspecified; M79.7 Fibromyalgia; Z79.52 Long term (current) use of systemic steroids; Z82.0 Family history of epilepsy and other diseases of the nervous system; Z87.11 Personal history of peptic ulcer disease; Z90.49 Acquired absence of other specified parts of digestive tract; Z90.710 Acquired absence of both cervix and uterus; Z96.643 Presence of artificial hip joint, bilateral; Z96.653 Presence of artificial knee joint, bilateral; Z98.1 Arthrodesis status
CPT/HCPCS: 36415; 71010; 73560-TC; 73700-TC; 76700-TC; 78315; 80048; 80053; 80076; 83735-TC; 85025; 85610-TC; 85651-TC; 85730-TC; 86140; 86886; 86900; 86901; 86920; 87070-TC; 87075-TC; 87081; 87101; 87116; 93005; A9503; C1751; C1769; J0712; J1100; J1170; J1720; J1885; J2250; J2270; J2405; J2704; J3010; J7050; J7120; J7512

== ENCOUNTER 2016-07-21 00:35 | Inpatient (IN) | payer OTHER ==
[2016-05-31 15:33] VITALS: Ht 162.6 cm; Wt 90.7 kg
[~2016-07-21] VITALS: Ht 162.6 cm; Wt 90.7 kg
[2016-07-21] VITALS (24 sets, daily range): BP systolic 76–158; BP diastolic 36–97; PULSE 78–101; RESP 15–33; TEMP 97.5–99.3; O2SAT 90–100
[~2016-07-21 00:35] MED LIST changes: +AZU500 PO; +LOSA50TA3 PO; +METO-442 PO
--- NOTE | 2016-07-21 00:38 | NUR ---
Placed in room 01 . Placed on chassis inspector, blood pressure machine and pulse oximeter. To gown for exam. Side rails up. Report given to ZAINA Farrell.
--- NOTE | 2016-07-21 00:40 | NUR ---
ER at bedside examining patient.
--- NOTE | 2016-07-21 00:43 | NUR ---
Patient brought to ER by ambulance from [facility] for hypotension. Per EMT staff went to give pm BP meds and patient was hypotensive. In ER patient BP 76/36. Patient in reversed trendelenburg. Patient has left upper arm PICC line and 20G right forearm placed by EMT. Patient also has an unproductive cough. Patient is AAOx4, states left leg surgery about 1 wek ago at [facility] for rehabilitation. Bilateral lower legs cap refill >3sec. Left leg knee immobilizer & WONG wrap. Addendum: 07/21/16 at 0158 by GIFTY Patient is from [facility]. NOT [facility]
[2016-07-21] MEDS ORDERED: NS 1000 ML BAG IV ONE (00:45)
--- NOTE | 2016-07-21 00:45 | NUR ---
# 20 gauge angiocath placed to right ac. Use of asceptic technique. Opsite placed over site. Blood return noted. Blood for lab drawn from site including blood cultures & lactic. Flushed with 10 cc of normal saline. No evidence of infiltration noted. Patient tolerated well.
--- NOTE | 2016-07-21 00:50 | NUR ---
PICC line - unable to pull back blood on both ports. Both ports flush with resistence. 20G IV placed by EMT - no blood return. Will not use.
[2016-07-21 01:08] LABS: BASOPHILS % (AUTO) 0.2 % (0.0-2.0); EOSINOPHILS # (AUTO) 0.1 K/uL (0.0-0.4); EOSINOPHILS % (AUTO) 1.3 % (0.0-4.0); HEMATOCRIT 29.6 % (36-48); HEMOGLOBIN 9.6 g/dL (12.0-16.0); LYMPHOCYTES # (AUTO) 1.7 K/uL (1.0-5.5); LYMPHOCYTES % (AUTO) 17.3 % (20.5-51.5); MEAN CORPUSCULAR HEMOGLOBIN 27 pg (27-31); MEAN CORPUSCULAR HGB CONC 32 % (32-36); MEAN CORPUSCULAR VOLUME 85 fL (79.0-98.0); MONOCYTES # (AUTO) 0.6 K/uL (0.0-1.0); MONOCYTES % (AUTO) 6.2 % (1.7-9.3); NEUTROPHILS # (AUTO) 7.3 K/uL (1.8-7.7); PLATELET COUNT (AUTO) 381 K/uL (130-430); RED BLOOD CELL COUNT(AUTO) 3.49 MIL/uL (4.2-6.2); RED CELL DISTRIBUTION WIDTH 16.6 % (9.0-15.0); WHITE BLOOD COUNT (AUTO) 9.7 K/uL (4.8-10.8)
--- NOTE | 2016-07-21 01:15 | NUR ---
Patient at bedside.
--- NOTE | 2016-07-21 01:20 | NUR ---
# 16 FR Gomes catheter with use of sterile technique. Immediate return of 400 cc yellow urine noted. Bedside drainage bag placed below level of bladder. Urine sample collected and sent to lab. Pt tolerated procedure well. Patient unable to toilet self.
[2016-07-21 01:22] LABS: ANION GAP 6 (5-15); CALCIUM 7.6 mg/dL (8.4-11.0); CHLORIDE 95 mmol/L (98-107); CREATININE 3.28 mg/dL (0.55-1.30); GLUCOSE 112 mg/dL (70-99); POTASSIUM 3.9 mmol/L (3.5-5.1); SODIUM SERUM 131 mmol/L (136-145); UREA NITROGEN, BLOOD 45 mg/dL (8-21)
[2016-07-21] MEDS ORDERED: PRED10TA PO (01:23)
[2016-07-21] MEDS ORDERED: OXYB5TAB11 PO (01:23)
[2016-07-21] MEDS ORDERED: FERR-57 PO (01:23)
[2016-07-21] MEDS ORDERED: AMLO5TAB4 PO (01:23)
[2016-07-21] MEDS ORDERED: FOLI-43 PO (01:23)
[2016-07-21] MEDS ORDERED: TIMO5DRO4 OP (01:23)
[2016-07-21] MEDS ORDERED: [UNRECOGNIZED DRUG - CODE] PO (01:23)
[2016-07-21] MEDS ORDERED: COU5 PO (01:23)
[2016-07-21] MEDS ORDERED: ASCO500T20 PO (01:23)
[2016-07-21] MEDS ORDERED: AZU500 PO (01:23)
[2016-07-21] MEDS ORDERED: CAT.1 PO (01:23)
[2016-07-21] MEDS ORDERED: MELA10TA2 PO (01:23)
[2016-07-21] MEDS ORDERED: LATA2.5D6 OP (01:23)
[2016-07-21] MEDS ORDERED: HYDR-1189 PO (01:23)
[2016-07-21] MEDS ORDERED: BENA10TA2 PO (01:23)
[2016-07-21] MEDS ORDERED: DOCU-144 PO (01:23)
[2016-07-21] MEDS ORDERED: CILO100T PO (01:23)
[2016-07-21] MEDS ORDERED: GABA-533 PO (01:23)
[2016-07-21] MEDS ORDERED: LOVI30 SQ (01:23)
[2016-07-21] MEDS ORDERED: VITA100014 PO (01:23)
[2016-07-21] MEDS ORDERED: OXYC5TAB84 PO (01:23)
[2016-07-21] MEDS ORDERED: PANT40TA4 PO (01:23)
--- NOTE | 2016-07-21 01:23 | NUR ---
Medication reconciliation completed with information provided by facility. Any prior medication reconciliation on file was reviewed and corrected.
[2016-07-21 01:26] LABS: INR 1.7 (0.8-1.2)
[2016-07-21 01:27] LABS: ALANINE AMINOTRANSFERASE 47 U/L (12-78); ALBUMIN 2.3 g/dL (3.4-4.8); ASPARTATE AMINOTRANSFERASE 23 U/L (10-37); TOTAL BILIRUBIN 0.4 mg/dL (0.0-1.0); TOTAL PROTEIN, SERUM 5.9 g/dL (6.4-8.3)
--- NOTE | 2016-07-21 01:34 | NUR ---
Note reynold in ED - 07/21/16 at 0250 by GIFTY Patient will be admitted to care of DR PENA. Admitted to ICU 4 unit. Will go to room ICU 4. Belongings list completed. Summary report printed. Report given to
[2016-07-21 01:56] LABS: BILIRUBIN,URINE NEGATIVE (NEGATIVE); BLOOD, URINE NEGATIVE (NEGATIVE); CLARITY/URINE CLEAR (CLEAR); COLOR,URINE YELLOW (YELLOW); GLUCOSE,URINE NEGATIVE (NEGATIVE); KETONES,URINE NEGATIVE (NEGATIVE); LEUKOCYTE ESTERASE ,URINE NEGATIVE (NEGATIVE); NITRITE, URINE NEGATIVE (NEGATIVE); PH,URINE 5.5 (5.0-8.0); PROTEIN URINE NEGATIVE (NEGATIVE); UROBILINOGEN,URINE 0.2 (0.2-1.0)
--- NOTE | 2016-07-21 02:01 | NUR ---
Left leg undressed with ER MD Hassan at bedside to visualize the incision and the status of the leg. Per patient the leg was dressed Thursday mornign at [facility]. Left upper thigh skin graft site, not scebbed, small areas still oozing blood, above left knee suture clean dry intact no sign of infection. Lower leg re-dressed and spling re-applied. Upper thigh wound dressed. Knee immobilizer placed back on leg. Patient tolerated well.
--- NOTE | 2016-07-21 02:34 | NUR ---
Patient will be admitted to care of DR PENA. Admitted to ICU 4 unit. Will go to room ICU 4. Belongings list completed. Summary report printed. Report given to RN.
--- NOTE | 2016-07-21 02:51 | NUR ---
Transfer to ICU 4 via ACLS protocol. Licensed nurse present. IV present no signs or symptoms of infiltration.
[2016-07-21] MEDS ORDERED: NACL 0.9% 1,000 ML IV SCH (02:53)
[2016-07-21] MEDS ORDERED: cefTRIAXone 1 GM IVPB PREMIX 50 ML IV SCH (03:00)
--- NOTE | 2016-07-21 03:05 | NUR ---
ADMISSION TO ICU: Patient was admitted to ICU bed 4, transported via gurney by 1 RN and 1 alarm security or surveillance monitor. Transferred to bed without any incident. Patient alert and oriented x 4. Breathing even and unlabored. No acute distress or SOB noted. Patient was attached to the monitor and BP noted to be low 83/60. Afebrile. Left leg with immobilizer present due to a recent left knee surgery at [facility]. PICC line on the left upper arm noted but no blood return. Right side upper arm IV access G20 noted but infiltrated. Right AC G20 patent and intact, no signs of redness or swelling noted. Placed call light within reach. Bed in lowest level with 2 side rails up. Bed brakes locked. All needs met. Will continue to monitor.
--- NOTE | 2016-07-21 03:40 | NUR ---
PICC PICC line present left upper arm, double lumen. PICC line ports flush easily. No blood return noted. No redness or swelling noted @ site. Dressing intact.
--- NOTE | 2016-07-21 04:00 | NUR ---
LEFT LEG Left lower extremity with long leg immobilizer in use. Dressing noted over left knee. Pictures taken of incision.
--- NOTE | 2016-07-21 04:25 | NUR ---
DR BECKY Fu notified regarding BP of 85/49, Pt coughing. 1. Start Levophed if systolic below 80 and keep above [address] Cain 3. DuoNeb Q 8, one now 4. Increase IV fluids to 125ml/hr Dr Fu aware of Pencillin allergy, and Rocephin on hold.
[2016-07-21] MEDS ORDERED: IPRATROPIUM/ALBUTEROL SULFATE 3 ML AMPUL.NEB INH ONE (04:45)
[2016-07-21] MEDS ORDERED: NOREPINEPHRINE BITARTRATE 4 MG in NS 246 ML IV PRN (04:45)
[2016-07-21] MEDS ORDERED: IPRATROPIUM/ALBUTEROL SULFATE 3 ML AMPUL.NEB ONE (05:00)
--- NOTE | 2016-07-21 05:04 | NUR ---
ID CONSULT: Called Dr. Canas for ID consult. Dx: R/O Sepsis. Spoke with Shirley from the exchange.
--- NOTE | 2016-07-21 05:07 | NUR ---
NEPHROLOGY CONSULT: Called Dr. Schwab for Nephro consult but per Shirley from exchange, Dr. Flanagan in the morning. Dx: Acute Renal Failure.
[2016-07-21] MEDS ORDERED: ACETAMINOPHEN 325 MG TABLET PO PRN (06:15)
[2016-07-21] MEDS ORDERED: oxyCODONE HCL 5 MG TABLET PO PRN (06:15)
[2016-07-21] MEDS: NACL 0.9% 1,000 ML IV SCH ×3 (06:30→23:20)
--- NOTE | 2016-07-21 06:32 | NUR ---
consult for dr. ortega (dr. ceballos precision dyer) called spoke to letty dialed [phone]
--- NOTE | 2016-07-21 07:03 | NUR ---
ADMISSION Pt wants to sleep, and is requesting to be left alone ( unable to complete admission questions) and sent back to SNF.
--- NOTE | 2016-07-21 07:30 | NUR ---
BEGINNING OF SHIFT ASSESSMENT: Received patient awake and alert x 4,verbal,able to make her needs known.Rhonchi lung sounds heard through out.Patient is sinus rhythm on monitor.Currently infusing NS at rate of 125 mls/hr to right AC #20.All ports patent,flushable with blood return,dressing clean,dry and intact.No signs of distress,sob,pain at this time.Bed locked,in lowest position,call light within easy,upper side rails x 2 up.Pt will continue to be monitored closely.
--- NOTE | 2016-07-21 08:00 | NUR ---
ROUNDING DR. Nickie LUZ at bedside examining patient,updated on condition.New orders received.Pt continues to be monitored closely.
[2016-07-21] MEDS ORDERED: HYDROCORTISONE SOD SUCC 100 MG/2 ML VIAL IVP ONE (08:45)
[2016-07-21] MEDS ORDERED: COMMUNICATION ORDER XX ONE (09:00)
[2016-07-21] MEDS ORDERED: SACCHAROMYCES BOULARDII 500 MG PO SCH (09:00)
[2016-07-21] MEDS ORDERED: PREDNISONE 10 MG TABLET PO SCH (09:00)
[2016-07-21] MEDS ORDERED: sulfASALAZINE 500 MG TABLET (AZULFIDINE) PO SCH (09:00)
[2016-07-21] MEDS: LACTOBACILLUS RHAMNOSUS GG 1 CAP CAPSULE PO SCH ×2 (09:26→21:06)
[2016-07-21] MEDS: ASCORBIC ACID 500 MG TABLET PO SCH ×2 (09:26→21:06)
[2016-07-21] MEDS: DOCUSATE SODIUM 100 MG CAPSULE PO SCH ×2 (09:26→21:06)
[2016-07-21] MEDS: FOLIC ACID 1 MG TABLET PO SCH (09:26)
[2016-07-21] MEDS: DULoxetine HCL 30 MG CAPSULE.DR (CYMBALTA) PO SCH (09:27)
[2016-07-21] MEDS: FERROUS SULFATE 325 MG TABLET.DR PO SCH (09:27)
[2016-07-21] MEDS: GABAPENTIN 400 MG CAPSULE PO SCH ×2 (09:27→21:06)
[2016-07-21] MEDS: PANTOPRAZOLE SODIUM 40 MG TAB PO SCH (09:27)
[2016-07-21] MEDS: OXYBUTYNIN CHLORIDE 5 MG TABLET PO SCH ×2 (09:28→21:07)
--- NOTE | 2016-07-21 09:30 | NUR ---
Nutrition Update Jose Scale 16 noted. Pt admitted for hypotension, r/o sepsis. Diet: 2 gm Na BMI: 34.3 kg/m2 RD to follow per nutrition care standards.
[2016-07-21] MEDS: TIMOLOL MALEATE 0.5% OPHTHALMIC DROPS 5 ML OP SCH (09:32)
[2016-07-21 10:10] LABS: ANION GAP 4 (5-15); CALCIUM 7.3 mg/dL (8.4-11.0); CHLORIDE 104 mmol/L (98-107); CREATININE 1.85 mg/dL (0.55-1.30); GLUCOSE 112 mg/dL (70-99); POTASSIUM 4.4 mmol/L (3.5-5.1); SODIUM SERUM 137 mmol/L (136-145); UREA NITROGEN, BLOOD 37 mg/dL (8-21)
--- NOTE | 2016-07-21 10:35 | NUR ---
ULTRASOUND RENAL: orthodontic lab technician at bedside.Pt tolerating procedure.
[2016-07-21] MEDS ORDERED: VANCOMYCIN HCL 750 MG in NS 250 ML IV SCH ×4 (11:00)
[2016-07-21] MEDS ORDERED: *CUBICIN 6 MG/KG Q48H/PHARMACY XX PRN (11:30)
--- NOTE | 2016-07-21 11:50 | NUR ---
ROUNDING DR. BONIFACIO LUZ at bedside examining patient, updated on patient condition.Patient continues to be monitored closely.
[2016-07-21] MEDS: HYDROcodone/ACETAMIN 5-325 MG TAB (NORCO/ VICODIN) PO PRN (11:53)
[2016-07-21] MEDS ORDERED: ALBUMIN HUMAN 25% 50 ML IV ONE (12:00)
[2016-07-21] MEDS ORDERED: DAPTOmycin 500 MG in NS 50 ML IV SCH (12:30)
[2016-07-21] MEDS: HYDROCORTISONE SOD SUCC 100 MG/2 ML VIAL IVP SCH ×2 (14:32→21:07)
[2016-07-21] MEDS ORDERED: IPRATROPIUM/ALBUTEROL SULFATE 3 ML AMPUL.NEB INH SCH (15:00)
[2016-07-21] MEDS: ALBUTEROL SULFATE 0.083% 2.5 MG/3 ML VIAL.NEB INH SCH ×2 (15:47→23:27)
[2016-07-21] MEDS: IPRATROPIUM BROM 0.5 MG/2.5 ML VIAL.NEB (ATROVENT) INH SCH ×2 (15:47→23:27)
--- NOTE | 2016-07-21 15:56 | NUR ---
PT UPDATE: Patient resting in bed speaking to her daughter on phone. Patient turned, repositioned.No signs of shortness of breath,distress or pain at this time. Pt continues to be monitored closely.
[2016-07-21] MEDS ORDERED: WARFARIN SODIUM 5 MG TABLET PO SCH (17:00)
--- NOTE | 2016-07-21 17:00 | NUR ---
ROUNDING Dr. Roe LUZ at bedside examining patient wound.No new orders given.Pt dressing changed under the observation of MD.Dressing clean, dry and intact.Pt tolerating dressing change.No complaints of pain, distress at this time. Patient turned, repositioned.Bed locked in lowest position,call light within easy reach,upper side rails x 2.Pt continues to be monitored closely.
--- NOTE | 2016-07-21 19:32 | NUR ---
CLOSING NOTE: Report given to ZAINA Carey. Endorsed all care to night nurseCherry RN.
--- NOTE | 2016-07-21 19:45 | NUR ---
PM ASSESSMENT: Patient alert and oriented x 4. In room air. Breathing even and unlabored. No acute distress or SOB noted. Vital signs stable. Left upper PICC line noted, patent and intact. No signs of redness or swelling on the PICC site. Right AC G20, patent and intact. No signs of redness or swelling on the IV site. Left leg immobilizer in place. Elevated with a pillow. Left leg side covered with dressing. Gomes cath in place draining clear, yellow colored urine. Bed in lowest level with 2 side rails up. Bed brakes locked. All needs met. Denies having pain or discomfort at this time. Placed call light within reach. Will continue to monitor.
[2016-07-21] MEDS ORDERED: LATANOPROST 2.5 ML DROPS (XALATAN) OP SCH (21:00)
[2016-07-21] MEDS ORDERED: traZODone HCL 50 MG TABLET (DESYREL) PO SCH (21:00)
--- NOTE | 2016-07-21 23:15 | NUR ---
BM: Patient had one small formed, brown colored BM on the bed gee.
[2016-07-22] VITALS (18 sets, daily range): BP systolic 110–175; BP diastolic 54–89; PULSE 79–100; RESP 13–34; TEMP 97.8–98.1; O2SAT 92–97
[2016-07-22] MEDS: HYDROcodone/ACETAMIN 5-325 MG TAB (NORCO/ VICODIN) PO PRN (01:01)
--- NOTE | 2016-07-22 03:39 | NUR ---
PT UPDATE: Patient resting quietly. No acute distress noted. Vital signs within normal range. Patient repositions self most of the time.
--- NOTE | 2016-07-22 05:10 | NUR ---
Step Down Specialist at bedside taking AM lab draw.
[2016-07-22] MEDS: HYDROCORTISONE SOD SUCC 100 MG/2 ML VIAL IVP SCH (05:14)
[2016-07-22 06:52] LABS: BASOPHILS % (AUTO) 0.5 % (0.0-2.0); EOSINOPHILS % (AUTO) 0.7 % (0.0-4.0); HEMATOCRIT 27.8 % (36-48); HEMOGLOBIN 8.9 g/dL (12.0-16.0); LYMPHOCYTES # (AUTO) 1.2 K/uL (1.0-5.5); LYMPHOCYTES % (AUTO) 19.2 % (20.5-51.5); MEAN CORPUSCULAR HEMOGLOBIN 28 pg (27-31); MEAN CORPUSCULAR HGB CONC 32 % (32-36); MEAN CORPUSCULAR VOLUME 87 fL (79.0-98.0); MONOCYTES # (AUTO) 0.5 K/uL (0.0-1.0); MONOCYTES % (AUTO) 7.5 % (1.7-9.3); NEUTROPHILS # (AUTO) 4.6 K/uL (1.8-7.7); NEUTROPHILS % (AUTO) 72.1 % (40.0-70.0); PLATELET COUNT (AUTO) 305 K/uL (130-430); RED BLOOD CELL COUNT(AUTO) 3.21 MIL/uL (4.2-6.2); RED CELL DISTRIBUTION WIDTH 16.1 % (9.0-15.0); WHITE BLOOD COUNT (AUTO) 6.3 K/uL (4.8-10.8)
[2016-07-22 06:57] LABS: ANION GAP 6 (5-15); ASPARTATE AMINOTRANSFERASE 19 U/L (10-37); CALCIUM 7.7 mg/dL (8.4-11.0); CHLORIDE 107 mmol/L (98-107); CREATININE 0.84 mg/dL (0.55-1.30); GLUCOSE 106 mg/dL (70-99); POTASSIUM 3.7 mmol/L (3.5-5.1); SODIUM SERUM 140 mmol/L (136-145); TOTAL BILIRUBIN 0.2 mg/dL (0.0-1.0); UREA NITROGEN, BLOOD 24 mg/dL (8-21)
[2016-07-22 06:58] LABS: ALANINE AMINOTRANSFERASE 37 U/L (12-78); TOTAL PROTEIN, SERUM 5.5 g/dL (6.4-8.3)
[2016-07-22] MEDS: ALBUTEROL SULFATE 0.083% 2.5 MG/3 ML VIAL.NEB INH SCH ×2 (07:00→15:00)
[2016-07-22] MEDS: IPRATROPIUM BROM 0.5 MG/2.5 ML VIAL.NEB (ATROVENT) INH SCH ×2 (07:00→15:00)
[2016-07-22 07:17] LABS: INR 2.4 (0.8-1.2); PROTHROMBIN TIME 26.4 SECS (9.5-12.5)
--- NOTE | 2016-07-22 07:45 | NUR ---
BEGINNING OF SHIFT ASSESSMENT: Received patient awake and alert x 4,verbal,able to make her needs known.Rhonchi lung sounds heard through out.Patient is sinus rhythm on monitor.Currently infusing NS at rate of 100 mls/hr to right AC #20.All ports patent,flushable with blood return,dressing clean,dry and intact.No signs of distress,sob,pain at this time.Bed locked,in lowest position,call light within easy,upper side rails x 2 up.Pt will continue to be monitored closely.
--- NOTE | 2016-07-22 08:30 | NUR ---
PT CARE: Bm x 1, cleaned, oral care, CHG bath provided, linen changed.Pt resting in bed, watching television, no signs of distress at this time.
[2016-07-22] MEDS: TIMOLOL MALEATE 0.5% OPHTHALMIC DROPS 5 ML OP SCH (08:57)
[2016-07-22] MEDS: LACTOBACILLUS RHAMNOSUS GG 1 CAP CAPSULE PO SCH (08:58)
[2016-07-22] MEDS: DOCUSATE SODIUM 100 MG CAPSULE PO SCH ×2 (08:58→09:00)
[2016-07-22] MEDS: ASCORBIC ACID 500 MG TABLET PO SCH (08:58)
[2016-07-22] MEDS: FOLIC ACID 1 MG TABLET PO SCH (08:58)
[2016-07-22] MEDS: DULoxetine HCL 30 MG CAPSULE.DR (CYMBALTA) PO SCH (08:59)
[2016-07-22] MEDS: PANTOPRAZOLE SODIUM 40 MG TAB PO SCH (08:59)
[2016-07-22] MEDS: FERROUS SULFATE 325 MG TABLET.DR PO SCH (08:59)
[2016-07-22] MEDS: GABAPENTIN 400 MG CAPSULE PO SCH (08:59)
[2016-07-22] MEDS: OXYBUTYNIN CHLORIDE 5 MG TABLET PO SCH (09:00)
--- NOTE | 2016-07-22 09:40 | NUR ---
Social Service Note: COMMIS CHEF met with pt at bedside. Pt states that she is anxious to return to [place]. Pt states that she has no other concerns/needs at this time. COMMIS CHEF will remain available for support and will follow up as needed.
--- NOTE | 2016-07-22 10:00 | NUR ---
ROUNDING DR. BONIFACIO LUZ at bedside examining patient, updated on patient condition.Pt continues to be monitored closely.
[2016-07-22] MEDS: NACL 0.9% 1,000 ML IV SCH ×2 (10:40→13:57)
--- NOTE | 2016-07-22 11:00 | NUR ---
MD COMMUNICATION DR. PENA Received telephone orders for patient.Orders carried out as ordered.
[2016-07-22] MEDS ORDERED: HYDROCORTISONE SOD SUCC 100 MG/2 ML VIAL IVP SCH (14:00)
--- NOTE | 2016-07-22 14:10 | NUR ---
DISCHARGE PLANNING DC planning to [facility]. Faxed SNF referral. Called and spoke with Heather in admitting who was made aware medications will need to be continued at [facility]. Heather will have DON review and return call to DCP with bed availability. DCP will follow up. Addendum: 07/22/16 at 1525 by Natali PALACIO Spoke with Heather in admitting at [facility] patient accepted with all continued orders per MD patient assigned to room 112B RN to report [phone] bed available anytime. RN made aware and will update patient. DC order to SNF. Called [facility] ambulance [phone] spoke with Sarbjit sam [facility] transport continuous pickling line pickler soonest available at 5pm. Placed transportation packet in nurses station.
--- NOTE | 2016-07-22 16:19 | NUR ---
Pt. emili andres. d/c today as per MD alvarado
--- NOTE | 2016-07-22 16:20 | NUR ---
Gave report to intake nurse at [facility]
--- NOTE | 2016-07-22 17:40 | NUR ---
Ambulance Transport [facility] ambulance [facility] on unit for patient transfer to [facility].No signs of distress, shortness of breath, pain noted.Pt tolerating well.
--- NOTE | 2016-07-22 17:45 | NUR ---
PATIENT TRANSFER: Patient transferred off unit via gurney by [facility] ambulance to [facility].Pt safety maintained.
[2016-07-22] MEDS ORDERED: WARFARIN SODIUM 3 MG TABLET PO SCH (18:00)
[2016-07-23] MEDS ORDERED: PREDNISONE 10 MG TABLET PO SCH (09:00)
== END 2016-07-22 17:52 | DRG 871 ==
LOC: SED 00:35 → SIC 02:51
PROVIDERS: ADMIT Internal Medicine; ATTEND Internal Medicine
DX: A41.9 Sepsis, unspecified organism (principal); E43 Unspecified severe protein-calorie malnutrition; R65.21 Severe sepsis with septic shock; N17.9 Acute kidney failure, unspecified; M19.90 Unspecified osteoarthritis, unspecified site; M79.7 Fibromyalgia; I73.9 Peripheral vascular disease, unspecified; N18.9 Chronic kidney disease, unspecified; Z96.643 Presence of artificial hip joint, bilateral; Z96.653 Presence of artificial knee joint, bilateral; H40.9 Unspecified glaucoma; E86.1 Hypovolemia; M06.9 Rheumatoid arthritis, unspecified; I12.9 Hypertensive chronic kidney disease with stage 1 through stage 4 chronic kidney disease, or unspecified chronic kidney disease; E86.0 Dehydration; I87.8 Other specified disorders of veins; Z68.34 Body mass index [BMI] 34.0-34.9, adult; Z79.52 Long term (current) use of systemic steroids; Z98.1 Arthrodesis status; Z87.11 Personal history of peptic ulcer disease; Z82.0 Family history of epilepsy and other diseases of the nervous system; Z90.49 Acquired absence of other specified parts of digestive tract; Z90.710 Acquired absence of both cervix and uterus; D50.9 Iron deficiency anemia, unspecified
CPT/HCPCS: 36415; 71010; 76770; 80048; 80053; 81003; 83605; 83880; 84484; 85025; 85610-TC; 85651-TC; 85730-TC; 86140; 87040-TC; 87081; 87086; 93005; 94640; 96360; 99291; J0696; J0878; J1720; J3370; J7030; J7050; J7060

== ENCOUNTER 2018-10-20 19:44 | Emergency (ER) | payer OTHER ==
[~2018-10-20] VITALS: Ht 160 cm; Wt 72.6 kg
[~2018-10-20 19:44] MED LIST changes: +ASCO500T20 PO; +BENA10TA9 PO; +CAT.1 PO; +CILO100T PO; +COU5 PO; +DOCU-144 PO; +FERR-57 PO; -FURO-150 PO; +GABA-533 PO; +HYDR-1189 PO; -LOSA50TA3 PO; +LOVI30 SQ; +MELA10TA2 PO; -METO-290 PO; -OXYB10TA4 PO; +OXYB5TAB11 PO; +OXYC-580 PO; +PANT40TA4 PO; +PRED10TA PO; -PRED5TAB PO; -PRO40 PO; -ROCPM1 IV; -SULF500T8 PO; +TIMO5DRO15 OP; -TRAM50TA2 PO; -TRAZ-126 PO; +TRAZ-219 PO; +VITA100014 PO; +XALEYE OP; +[UNRECOGNIZED DRUG - CODE] PO
[2018-10-20 19:50] VITALS: BP_SYST 176
[2018-10-20 20:56] LABS: BASOPHILS % (AUTO) 0.5 % (0.0-2.0); EOSINOPHILS # (AUTO) 0.1 K/uL (0.0-0.4); EOSINOPHILS % (AUTO) 1.4 % (0.0-4.0); HEMATOCRIT 37.7 % (36-48); HEMOGLOBIN 11.9 g/dL (12.0-16.0); LYMPHOCYTES # (AUTO) 1.7 K/uL (1.0-5.5); LYMPHOCYTES % (AUTO) 23.3 % (20.5-51.5); MEAN CORPUSCULAR HEMOGLOBIN 26 pg (27-31); MEAN CORPUSCULAR HGB CONC 32 % (32-36); MEAN CORPUSCULAR VOLUME 84 fL (79.0-98.0); MONOCYTES # (AUTO) 0.7 K/uL (0.0-1.0); MONOCYTES % (AUTO) 9.4 % (1.7-9.3); NEUTROPHILS # (AUTO) 4.8 K/uL (1.8-7.7); NEUTROPHILS % (AUTO) 65.4 % (40.0-70.0); PLATELET COUNT (AUTO) 334 K/uL (130-430); WHITE BLOOD COUNT (AUTO) 7.3 K/uL (4.8-10.8)
[2018-10-20] MEDS ORDERED: LIDOCAINE/EPI 2% 1:100000 20 ML VIAL INJ ONE ×2 (21:30→21:36)
[2018-10-20 21:50] VITALS: BP_SYST 176
[2018-10-20] MEDS ORDERED: BACITRACIN 1 GM OINT TP ONE (21:53)
[2018-10-20 21:55] LABS: ANION GAP 10 (5-15); CALCIUM 9.6 mg/dL (8.4-11.0); CHLORIDE 103 mmol/L (98-107); CREATININE 0.62 mg/dL (0.55-1.30); GLUCOSE 101 mg/dL (70-99); SODIUM SERUM 140 mmol/L (136-145); UREA NITROGEN, BLOOD 21 mg/dL (8-21)
[2018-10-20 22:00] LABS: ALANINE AMINOTRANSFERASE 21 U/L (12-78); ALBUMIN 3.2 g/dL (3.4-4.8); ASPARTATE AMINOTRANSFERASE 19 U/L (10-37); TOTAL BILIRUBIN 0.3 mg/dL (0.0-1.0)
== END 2018-10-20 21:50 | disposition short-term general hospital (02) ==
LOC: SED 19:44
DX: S01.01XA Laceration without foreign body of scalp, initial encounter (principal); L03.116 Cellulitis of left lower limb; L03.115 Cellulitis of right lower limb; I10 Essential (primary) hypertension; Z88.0 Allergy status to penicillin; Z91.048 Other nonmedicinal substance allergy status; Z79.899 Other long term (current) drug therapy; W01.0XXA Fall on same level from slipping, tripping and stumbling without subsequent striking against object, initial encounter; Y93.89 Activity, other specified; Y92.89 Other specified places as the place of occurrence of the external cause; Y99.8 Other external cause status
CPT/HCPCS: 36415; 70450-TC; 71045; 80053; 85025; 85610-TC; 85730-TC; 87040-TC; 93005; 99291

== ENCOUNTER 2019-06-29 17:12 | Inpatient (IN) | payer OTHER ==
[~2019-06-29] VITALS: Ht 160 cm; Wt 52.2 kg
[~2019-06-29 17:12] MED LIST changes: +BENA10TA11 PO; -BENA10TA9 PO
[2019-06-29 17:13] VITALS: BP_SYST 147; BP_SYST 160
[2019-06-29 18:06] LABS: BASOPHILS % (AUTO) 0.3 % (0.0-2.0); EOSINOPHILS % (AUTO) 0.1 % (0.0-4.0); HEMATOCRIT 28.6 % (36-48); HEMOGLOBIN 8.9 g/dL (12.0-16.0); LYMPHOCYTES # (AUTO) 0.7 K/uL (1.0-5.5); LYMPHOCYTES % (AUTO) 12.2 % (20.5-51.5); MEAN CORPUSCULAR HEMOGLOBIN 25 pg (27-31); MEAN CORPUSCULAR HGB CONC 31 % (32-36); MEAN CORPUSCULAR VOLUME 80 fL (79.0-98.0); MONOCYTES # (AUTO) 0.5 K/uL (0.0-1.0); MONOCYTES % (AUTO) 8.2 % (1.7-9.3); NEUTROPHILS # (AUTO) 4.5 K/uL (1.8-7.7); NEUTROPHILS % (AUTO) 79.2 % (40.0-70.0); PLATELET COUNT (AUTO) 307 K/uL (130-430); RED BLOOD CELL COUNT(AUTO) 3.57 MIL/uL (4.2-6.2); WHITE BLOOD COUNT (AUTO) 5.7 K/uL (4.8-10.8)
[2019-06-29 18:14] LABS: ANION GAP 11 (5-15); CALCIUM 8.7 mg/dL (8.4-11.0); CHLORIDE 100 mmol/L (98-107); CREATININE 0.85 mg/dL (0.55-1.30); GLUCOSE 153 mg/dL (70-99); POTASSIUM 3.2 mmol/L (3.5-5.1); SODIUM SERUM 136 mmol/L (136-145); UREA NITROGEN, BLOOD 15 mg/dL (8-21)
[2019-06-29 18:30] LABS: INR 1.1 (0.8-1.2); PROTHROMBIN TIME 11.2 SECS (9.5-12.5)
[2019-06-29 18:32] LABS: ALANINE AMINOTRANSFERASE 18 U/L (12-78); ALBUMIN 2.4 g/dL (3.4-4.8); ASPARTATE AMINOTRANSFERASE 21 U/L (10-37); TOTAL BILIRUBIN 0.3 mg/dL (0.0-1.0)
[2019-06-29 18:43] LABS: BILIRUBIN,URINE NEGATIVE (NEGATIVE); COLOR,URINE YELLOW (YELLOW); GLUCOSE,URINE NEGATIVE (NEGATIVE); KETONES,URINE NEGATIVE (NEGATIVE); LEUKOCYTE ESTERASE ,URINE 3+ (NEGATIVE); NITRITE, URINE NEGATIVE (NEGATIVE); PH,URINE 6.5 (5.0-8.0); PROTEIN URINE TRACE (NEGATIVE); UROBILINOGEN,URINE 0.2 (0.2-1.0)
[2019-06-29 18:44] LABS: BLOOD, URINE TRACE (NEGATIVE)
[2019-06-29 18:45] LABS: CLARITY/URINE HAZY (CLEAR)
[2019-06-29] MEDS ORDERED: POTASSIUM CHLORIDE 20 MEQ TAB.PRT.SR PO ONE (18:45)
[2019-06-29] MEDS ORDERED: AZITHROMYCIN 1,000 MG in NS 250 ML IV ONE (18:45)
[2019-06-29] MEDS ORDERED: NACL 0.9% 1,000 ML IV ONE (18:45)
[2019-06-29] MEDS ORDERED: LEVOFLOXACIN 500 MG/D5W 100 ML IV ONE (18:45)
[2019-06-29] MEDS ORDERED: NACL 0.9% 1,500 ML IV ONE (19:00)
[2019-06-29 19:02] LABS: BACTERIA,URINE MANY /HPF (None Seen); WBC,URINE 50-80 /HPF (0-3)
[2019-06-29] MEDS ORDERED: AZITHROMYCIN 500 MG/VIAL (ZITHROMAX) IV ONE (20:08)
[2019-06-29 22:48] VITALS: BP_SYST 151
[2019-06-30] MEDS ORDERED: cloNIDine HCL 0.2 MG TABLET PO PRN (01:15)
[2019-06-30] MEDS: HYDROcodone/ACETAMIN 5-325 MG TAB (NORCO/ VICODIN) PO PRN ×3 (01:21→18:05)
[2019-06-30 02:01] VITALS: BP_SYST 178
[2019-06-30 04:00] VITALS: BP_SYST 130
[2019-06-30] MEDS ORDERED: DULoxetine HCL 30 MG CAPSULE.DR (CYMBALTA) PO ONE (10:15)
[2019-06-30] MEDS ORDERED: PREDNISONE 5 MG TABLET PO ONE ×2 (10:15→19:00)
[2019-06-30] MEDS ORDERED: METOPROLOL TARTRATE 50 MG TABLET PO ONE (10:15)
[2019-06-30] MEDS ORDERED: BENAZEPRIL HCL Non-Formulary 10 MG TABLET PO ONE (10:15)
[2019-06-30] MEDS ORDERED: POTASSIUM CHLORIDE 20 MEQ TAB.PRT.SR PO ONE (11:00)
[2019-06-30] MEDS ORDERED: TIMOLOL MALEATE 0.5% OPHTHALMIC DROPS 5 ML OP ONE (11:00)
[2019-06-30 12:35] VITALS: BP_SYST 106
[2019-06-30] MEDS ORDERED: BALSAM PERU/CASTOR OIL 60 GM OINT...G. TP ONE (16:00)
[2019-06-30 16:18] VITALS: BP_SYST 116
[2019-06-30] MEDS ORDERED: CHOL500037 PO (17:24)
[2019-06-30] MEDS ORDERED: DIFL5DRO LEFT EYE (17:25)
[2019-06-30] MEDS ORDERED: FLOEARD LEFT EYE (17:28)
[2019-06-30] MEDS ORDERED: TIMO5DRO15 RIGHT EYE (17:28)
[2019-06-30] MEDS ORDERED: XALEYE RIGHT EYE (17:28)
[2019-06-30] MEDS ORDERED: FERROUS SULFATE 325 MG TABLET.DR PO ONE (19:00)
[2019-06-30] MEDS ORDERED: LEVOFLOXACIN 500 MG/D5W 100 ML IV SCH (19:00)
[2019-06-30] MEDS ORDERED: FOLIC ACID 1 MG TABLET PO ONE (19:00)
[2019-06-30] MEDS ORDERED: PANTOPRAZOLE SODIUM 40 MG TAB PO ONE (19:00)
[2019-06-30] MEDS ORDERED: OFLO5DRO6 LEFT EYE (19:14)
[2019-06-30 20:03] VITALS: BP_SYST 107
[2019-06-30] MEDS: LACTOBACILLUS RHAMNOSUS GG 1 CAP CAPSULE PO SCH (20:24)
[2019-06-30] MEDS: GABAPENTIN 400 MG CAPSULE PO SCH (20:25)
[2019-06-30] MEDS: traZODone HCL 50 MG TABLET (DESYREL) PO SCH (20:26)
[2019-06-30] MEDS: OXYBUTYNIN CHLORIDE 5 MG TABLET PO SCH (20:26)
[2019-06-30] MEDS: ENOXAPARIN SODIUM 40 MG/0.4 ML SYRINGE SUBCUT SCH (20:27)
[2019-06-30] MEDS: DIFLUPREDNATE EYE OP SCH (20:28)
[2019-06-30] MEDS: EYE OP SCH (20:29)
[2019-06-30] MEDS: LATANOPROST 2.5 ML DROPS (XALATAN) RIGHT EYE SCH (20:29)
[2019-06-30] MEDS: OFLOXACIN 0.3% OP SCH (20:29)
[2019-06-30] MEDS: TIMOLOL MALEATE 0.5% OPHTHALMIC DROPS 5 ML RIGHT EYE SCH ×2 (20:30→20:45)
[2019-06-30] MEDS ORDERED: LATANOPROST 2.5 ML DROPS (XALATAN) OP SCH (21:00)
[2019-07-01] VITALS: BP_SYST 124
[2019-07-01] MEDS: HYDROcodone/ACETAMIN 5-325 MG TAB (NORCO/ VICODIN) PO PRN ×2 (01:38→08:47)
[2019-07-01 06:50] LABS: HEMATOCRIT 23.9 % (36-48); HEMOGLOBIN 7.5 g/dL (12.0-16.0); LYMPHOCYTES # (AUTO) 1.6 K/uL (1.0-5.5); MONOCYTES # (AUTO) 0.5 K/uL (0.0-1.0); RED BLOOD CELL COUNT(AUTO) 2.97 MIL/uL (4.2-6.2)
[2019-07-01 06:58] LABS: BASOPHILS % (AUTO) 0.4 % (0.0-2.0); EOSINOPHILS # (AUTO) 0.1 K/uL (0.0-0.4); EOSINOPHILS % (AUTO) 1.7 % (0.0-4.0); LYMPHOCYTES % (AUTO) 37.7 % (20.5-51.5); MEAN CORPUSCULAR HEMOGLOBIN 25 pg (27-31); MEAN CORPUSCULAR HGB CONC 31 % (32-36); MEAN CORPUSCULAR VOLUME 80 fL (79.0-98.0); MONOCYTES % (AUTO) 12.7 % (1.7-9.3); NEUTROPHILS % (AUTO) 47.5 % (40.0-70.0); PLATELET COUNT (AUTO) 237 K/uL (130-430); RED CELL DISTRIBUTION WIDTH 18.2 % (9.0-15.0); WHITE BLOOD COUNT (AUTO) 4.2 K/uL (4.8-10.8)
[2019-07-01 06:59] LABS: ALANINE AMINOTRANSFERASE 21 U/L (12-78); ALBUMIN 1.8 g/dL (3.4-4.8); ANION GAP 5 (5-15); ASPARTATE AMINOTRANSFERASE 23 U/L (10-37); CALCIUM 8.3 mg/dL (8.4-11.0); CHLORIDE 104 mmol/L (98-107); CREATININE 0.67 mg/dL (0.55-1.30); GLUCOSE 110 mg/dL (70-99); POTASSIUM 3.7 mmol/L (3.5-5.1); SODIUM SERUM 137 mmol/L (136-145); THYROID STIMULATING HORMONE 1.42 uIu/mL (0.36-3.74); TOTAL BILIRUBIN 0.2 mg/dL (0.0-1.0); UREA NITROGEN, BLOOD 14 mg/dL (8-21)
[2019-07-01 07:35] LABS: TOTAL IRON BIND. CAPACITY 175 ug/dL (250-450)
[2019-07-01 08:40] VITALS: BP_SYST 115
[2019-07-01] MEDS ORDERED: PREDNISONE 5 MG TABLET PO SCH (09:00)
[2019-07-01] MEDS ORDERED: FERROUS SULFATE 325 MG TABLET.DR PO SCH (09:00)
[2019-07-01] MEDS ORDERED: TIMOLOL MALEATE 0.5% OPHTHALMIC DROPS 5 ML OP SCH (09:00)
[2019-07-01] MEDS: POTASSIUM CHLORIDE 20 MEQ TAB.PRT.SR PO SCH (09:16)
[2019-07-01] MEDS: OXYBUTYNIN CHLORIDE 5 MG TABLET PO SCH ×2 (09:16→20:21)
[2019-07-01] MEDS: GABAPENTIN 400 MG CAPSULE PO SCH ×2 (09:17→20:21)
[2019-07-01] MEDS: FOLIC ACID 1 MG TABLET PO SCH (09:18)
[2019-07-01] MEDS: METOPROLOL TARTRATE 50 MG TABLET PO SCH (09:19)
[2019-07-01] MEDS: PANTOPRAZOLE SODIUM 40 MG TAB PO SCH (09:19)
[2019-07-01] MEDS: PREDNISONE 10 MG TABLET PO SCH (09:20)
[2019-07-01] MEDS: DULoxetine HCL 30 MG CAPSULE.DR (CYMBALTA) PO SCH (09:20)
[2019-07-01] MEDS: LACTOBACILLUS RHAMNOSUS GG 1 CAP CAPSULE PO SCH ×2 (09:20→20:20)
[2019-07-01] MEDS: BENAZEPRIL HCL Non-Formulary 10 MG TABLET PO SCH (09:21)
[2019-07-01] MEDS: OFLOXACIN 0.3% OP SCH ×4 (09:40→20:58)
[2019-07-01] MEDS: EYE OP SCH ×4 (09:40→20:58)
[2019-07-01] MEDS: DIFLUPREDNATE EYE OP SCH ×4 (09:41→20:44)
[2019-07-01] MEDS: TIMOLOL MALEATE 0.5% OPHTHALMIC DROPS 5 ML RIGHT EYE SCH ×2 (09:42→20:48)
[2019-07-01] MEDS: BALSAM PERU/CASTOR OIL 60 GM OINT...G. TP SCH (09:43)
[2019-07-01 11:51] VITALS: BP_SYST 102
[2019-07-01 14:56] VITALS: BP_SYST 105
[2019-07-01] MEDS: EMOLLIENT COMBINATION NO.73 78 GM CREAM..G. TP SCH ×2 (16:37→20:50)
[2019-07-01] MEDS: SOD FERRIC GLUC COMPLEX/SUC 125 MG in NS 100 ML IV SCH (16:43)
[2019-07-01] MEDS ORDERED: EPOETIN ALFA 4,000 UNITS/ML VIAL SUBCUT SCH (17:00)
[2019-07-01] MEDS ORDERED: LEVOFLOXACIN 250 MG/D5W 50 ML IV SCH (18:00)
[2019-07-01 20:00] VITALS: BP_SYST 140
[2019-07-01] MEDS: traZODone HCL 50 MG TABLET (DESYREL) PO SCH (20:21)
[2019-07-01] MEDS: ENOXAPARIN SODIUM 40 MG/0.4 ML SYRINGE SUBCUT SCH (20:23)
[2019-07-01] MEDS: LATANOPROST 2.5 ML DROPS (XALATAN) RIGHT EYE SCH (20:49)
[2019-07-01] MEDS: ZOLPIDEM TARTRATE 5 MG TABLET PO PRN (20:58)
[2019-07-02 00:20] VITALS: BP_SYST 152
[2019-07-02 07:34] LABS: FOLATE (FOLIC ACID) 19.3 ng/mL (>3.0)
[2019-07-02 08:00] VITALS: BP_SYST 142
[2019-07-02] MEDS: DULoxetine HCL 30 MG CAPSULE.DR (CYMBALTA) PO SCH (09:41)
[2019-07-02] MEDS: PANTOPRAZOLE SODIUM 40 MG TAB PO SCH (09:41)
[2019-07-02] MEDS: GABAPENTIN 400 MG CAPSULE PO SCH ×2 (09:41→20:34)
[2019-07-02] MEDS: LACTOBACILLUS RHAMNOSUS GG 1 CAP CAPSULE PO SCH ×2 (09:41→20:34)
[2019-07-02] MEDS: POTASSIUM CHLORIDE 20 MEQ TAB.PRT.SR PO SCH (09:41)
[2019-07-02] MEDS: PREDNISONE 10 MG TABLET PO SCH (09:41)
[2019-07-02] MEDS: FOLIC ACID 1 MG TABLET PO SCH (09:41)
[2019-07-02] MEDS: OXYBUTYNIN CHLORIDE 5 MG TABLET PO SCH ×2 (09:42→20:34)
[2019-07-02] MEDS: METOPROLOL TARTRATE 50 MG TABLET PO SCH (09:43)
[2019-07-02] MEDS: BALSAM PERU/CASTOR OIL 60 GM OINT...G. TP SCH (09:50)
[2019-07-02] MEDS: EMOLLIENT COMBINATION NO.73 78 GM CREAM..G. TP SCH ×2 (09:50→20:35)
[2019-07-02] MEDS: DIFLUPREDNATE EYE OP SCH ×4 (09:55→20:37)
[2019-07-02] MEDS: TIMOLOL MALEATE 0.5% OPHTHALMIC DROPS 5 ML RIGHT EYE SCH ×2 (09:55→20:36)
[2019-07-02] MEDS: EYE OP SCH ×4 (09:56→20:36)
[2019-07-02] MEDS: OFLOXACIN 0.3% OP SCH ×4 (09:56→20:36)
[2019-07-02] MEDS: BENAZEPRIL HCL Non-Formulary 10 MG TABLET PO SCH (10:16)
[2019-07-02 12:00] VITALS: BP_SYST 138
[2019-07-02] MEDS: HYDROcodone/ACETAMIN 5-325 MG TAB (NORCO/ VICODIN) PO PRN (12:10)
[2019-07-02 16:00] VITALS: BP_SYST 134
[2019-07-02] MEDS: SOD FERRIC GLUC COMPLEX/SUC 125 MG in NS 100 ML IV SCH (16:37)
[2019-07-02] MEDS ORDERED: MULTIVITAMINS TAB 1 TABLET PO ONE (17:15)
[2019-07-02] MEDS ORDERED: EPOETIN ALFA 4,000 UNITS/ML VIAL SUBCUT ONE (17:45)
[2019-07-02] MEDS ORDERED: cefTRIAXone 1 GM in D5W 50 ML IV SCH (18:15)
[2019-07-02] MEDS ORDERED: cefTRIAXone 1 GM IVPB PREMIX 50 ML IV ONE (18:57)
[2019-07-02 19:55] VITALS: BP_SYST 152
[2019-07-02] MEDS: traZODone HCL 50 MG TABLET (DESYREL) PO SCH (20:34)
[2019-07-02] MEDS: MULTIVITAMINS TAB 1 TABLET PO SCH (20:34)
[2019-07-02] MEDS: ZOLPIDEM TARTRATE 5 MG TABLET PO PRN (20:34)
[2019-07-02] MEDS: LATANOPROST 2.5 ML DROPS (XALATAN) RIGHT EYE SCH (20:36)
[2019-07-02] MEDS: ENOXAPARIN SODIUM 40 MG/0.4 ML SYRINGE SUBCUT SCH (20:41)
[2019-07-03] VITALS: BP_SYST 154
[2019-07-03 05:39] LABS: BASOPHILS % (AUTO) 0.5 % (0.0-2.0); EOSINOPHILS # (AUTO) 0.1 K/uL (0.0-0.4); EOSINOPHILS % (AUTO) 1.9 % (0.0-4.0); HEMATOCRIT 27.2 % (36-48); HEMOGLOBIN 8.5 g/dL (12.0-16.0); LYMPHOCYTES # (AUTO) 1.6 K/uL (1.0-5.5); MEAN CORPUSCULAR HEMOGLOBIN 25 pg (27-31); MEAN CORPUSCULAR HGB CONC 31 % (32-36); MEAN CORPUSCULAR VOLUME 80 fL (79.0-98.0); MONOCYTES # (AUTO) 0.5 K/uL (0.0-1.0); MONOCYTES % (AUTO) 9.9 % (1.7-9.3); NEUTROPHILS # (AUTO) 3.2 K/uL (1.8-7.7); NEUTROPHILS % (AUTO) 58.7 % (40.0-70.0); PLATELET COUNT (AUTO) 258 K/uL (130-430); RED BLOOD CELL COUNT(AUTO) 3.41 MIL/uL (4.2-6.2); RED CELL DISTRIBUTION WIDTH 18.6 % (9.0-15.0); WHITE BLOOD COUNT (AUTO) 5.4 K/uL (4.8-10.8)
[2019-07-03 05:59] LABS: ANION GAP 7 (5-15); CALCIUM 8.2 mg/dL (8.4-11.0); CHLORIDE 102 mmol/L (98-107); CREATININE 0.61 mg/dL (0.55-1.30); GLUCOSE 99 mg/dL (70-99); POTASSIUM 3.3 mmol/L (3.5-5.1); SODIUM SERUM 140 mmol/L (136-145); UREA NITROGEN, BLOOD 15 mg/dL (8-21)
[2019-07-03] MEDS: HYDROcodone/ACETAMIN 5-325 MG TAB (NORCO/ VICODIN) PO PRN ×2 (08:28→16:06)
[2019-07-03] MEDS: MULTIVITAMINS TAB 1 TABLET PO SCH (08:28)
[2019-07-03] MEDS: GABAPENTIN 400 MG CAPSULE PO SCH (08:28)
[2019-07-03] MEDS: PREDNISONE 10 MG TABLET PO SCH (08:28)
[2019-07-03] MEDS: POTASSIUM CHLORIDE 20 MEQ TAB.PRT.SR PO SCH (08:29)
[2019-07-03] MEDS: OXYBUTYNIN CHLORIDE 5 MG TABLET PO SCH (08:30)
[2019-07-03] MEDS: BENAZEPRIL HCL Non-Formulary 10 MG TABLET PO SCH (08:31)
[2019-07-03] MEDS: LACTOBACILLUS RHAMNOSUS GG 1 CAP CAPSULE PO SCH (08:31)
[2019-07-03] MEDS: FOLIC ACID 1 MG TABLET PO SCH (08:32)
[2019-07-03] MEDS: PANTOPRAZOLE SODIUM 40 MG TAB PO SCH (08:32)
[2019-07-03] MEDS: DULoxetine HCL 30 MG CAPSULE.DR (CYMBALTA) PO SCH (08:32)
[2019-07-03] MEDS: METOPROLOL TARTRATE 50 MG TABLET PO SCH (08:33)
[2019-07-03] MEDS: DIFLUPREDNATE EYE OP SCH ×3 (08:36→16:12)
[2019-07-03] MEDS: TIMOLOL MALEATE 0.5% OPHTHALMIC DROPS 5 ML RIGHT EYE SCH (08:37)
[2019-07-03] MEDS: OFLOXACIN 0.3% OP SCH ×3 (08:37→16:13)
[2019-07-03] MEDS: EYE OP SCH ×3 (08:37→16:13)
[2019-07-03] MEDS: EMOLLIENT COMBINATION NO.73 78 GM CREAM..G. TP SCH (08:37)
[2019-07-03] MEDS: BALSAM PERU/CASTOR OIL 60 GM OINT...G. TP SCH (08:38)
[2019-07-03 09:20] VITALS: BP_SYST 132
[2019-07-03 12:00] VITALS: BP_SYST 143
[2019-07-03 14:12] VITALS: BP_SYST 132
[2019-07-03 16:07] VITALS: BP_SYST 139
[2019-07-03] MEDS: SOD FERRIC GLUC COMPLEX/SUC 125 MG in NS 100 ML IV SCH (16:07)
[2019-07-04] MEDS ORDERED: LISINOPRIL 20 MG TABLET PO SCH (09:00)
== END 2019-07-03 19:10 | DRG 291 ==
LOC: SED 17:12 → STU 19:46 → SMU 07-02 12:04
PROVIDERS: ADMIT Internal Medicine; ATTEND Internal Medicine
DX: I11.0 Hypertensive heart disease with heart failure (principal); E43 Unspecified severe protein-calorie malnutrition; N39.0 Urinary tract infection, site not specified; I50.33 Acute on chronic diastolic (congestive) heart failure; D63.8 Anemia in other chronic diseases classified elsewhere; G62.9 Polyneuropathy, unspecified; G89.4 Chronic pain syndrome; I73.9 Peripheral vascular disease, unspecified; M06.9 Rheumatoid arthritis, unspecified; Z96.652 Presence of left artificial knee joint; W01.0XXA Fall on same level from slipping, tripping and stumbling without subsequent striking against object, initial encounter; H26.9 Unspecified cataract; M19.90 Unspecified osteoarthritis, unspecified site; D50.9 Iron deficiency anemia, unspecified; E87.6 Hypokalemia; K44.9 Diaphragmatic hernia without obstruction or gangrene; Y93.89 Activity, other specified; Y92.89 Other specified places as the place of occurrence of the external cause; Z86.718 Personal history of other venous thrombosis and embolism; Y99.8 Other external cause status; Z79.899 Other long term (current) drug therapy; Z88.0 Allergy status to penicillin; Z91.048 Other nonmedicinal substance allergy status; Z90.49 Acquired absence of other specified parts of digestive tract; Z68.20 Body mass index [BMI] 20.0-20.9, adult
CPT/HCPCS: 36415; 36600; 70450-TC; 71045; 72131; 80048; 80053; 81000-TC; 82550-TC; 82607; 82746; 82803-TC; 83540-TC; 83550-TC; 83605; 83880; 84439; 84443-TC; 84484; 85025; 85610-TC; 85730-TC; 87040-TC; 87070-TC; 87086; 87186-TC; 93005; 93306; 93923; 96365; 96367; 97110-GP; 97116-GP; 97530-GP; 99291; G0378; J0456; J0696; J0885; J1650; J1956; J2916; J7030; J7040; J7050; J7060; J7512

== ENCOUNTER 2020-03-14 14:58 | Outpatient (CLI) | payer OTHER ==
[~2020-03-14 14:58] MED LIST changes: -AZU500 PO; -BENA10TA11 PO; +BENA10TA73 PO; +CHOL500037 PO; +DIFL5DRO LEFT EYE; +OFLO5DRO6 LEFT EYE; -OXYB5TAB11 PO; +OXYB5TAB18 PO; -OXYC-580 PO; +OXYIR5 PO; -PANT40TA4 PO; +PANT40TA45 PO; +SULF500T60 PO; -TIMO5DRO15 OP; +TIMO5DRO15 RIGHT EYE; -TRAZ-219 PO; +TRAZ-251 PO; -XALEYE OP; +XALEYE RIGHT EYE
== END 2020-03-14 21:16 | disposition home or self-care (01) ==
LOC: SCA 14:58
PROVIDERS: ATTEND Urology
DX: Z01.818 Encounter for other preprocedural examination (principal); N39.41 Urge incontinence
CPT/HCPCS: 93005

== ENCOUNTER 2021-01-19 18:38 | Emergency (ER) | payer OTHER, SELFPAY ==
[~2021-01-19] VITALS: Ht 160 cm; Wt 68.0 kg
[~2021-01-19 18:38] MED LIST changes: -HYDR-1189 PO; +HYDR-3919 PO
--- NOTE | 2021-01-19 18:54 | NUR ---
Placed in room 01 . Placed on desk monitor, blood pressure machine and pulse oximeter. To gown for exam. Side rails up.
[2021-01-19 18:55] VITALS: BP_SYST 159
--- NOTE | 2021-01-19 19:22 | NUR ---
PT ARRIVED WITH DAUGHTER TO ER AFTER A CALL FROM HER PCP AT [facility] 1700. PT WAS TOLD TO COME TO ER [facility] ONE OF HER LAB WORKS WAS OFF. PT HAS 0/10 PAIN. SHE FEELS MIMINAL SOB AND I WILL BE CONNECTING HER TO [facility] IF NEEDED. SHE HAS NO OTHER COMPLAINTS AAT THIS TIME.
[2021-01-19 19:52] LABS: BASOPHILS # (AUTO) 0.1 K/uL (0.0-0.2); BASOPHILS % (AUTO) 0.9 % (0.0-2.0); EOSINOPHILS % (AUTO) 0.5 % (0.0-4.0); LYMPHOCYTES # (AUTO) 2.4 K/uL (1.0-5.5); LYMPHOCYTES % (AUTO) 35.2 % (20.5-51.5); MEAN CORPUSCULAR HEMOGLOBIN 22 pg (27-31); MEAN CORPUSCULAR HGB CONC 30 % (32-36); MEAN CORPUSCULAR VOLUME 75 fL (79.0-98.0); MONOCYTES # (AUTO) 0.9 K/uL (0.0-1.0); MONOCYTES % (AUTO) 13.6 % (1.7-9.3); NEUTROPHILS # (AUTO) 3.4 K/uL (1.8-7.7); NEUTROPHILS % (AUTO) 49.8 % (40.0-70.0); PLATELET COUNT (AUTO) 344 K/uL (130-430); RED BLOOD CELL COUNT(AUTO) 2.33 MIL/uL (4.2-6.2); RED CELL DISTRIBUTION WIDTH 21.7 % (9.0-15.0); WHITE BLOOD COUNT (AUTO) 6.9 K/uL (4.8-10.8)
[2021-01-19 20:00] LABS: ANION GAP 9 (5-15); CALCIUM 8.3 mg/dL (8.4-11.0); CHLORIDE 102 mmol/L (98-107); CREATININE 0.74 mg/dL (0.55-1.30); GLUCOSE 106 mg/dL (70-99); POTASSIUM 3.6 mmol/L (3.5-5.1); SODIUM SERUM 138 mmol/L (136-145); UREA NITROGEN, BLOOD 14 mg/dL (8-21)
[2021-01-19 20:04] LABS: HEMOGLOBIN 5.2 g/dL (12.0-16.0)
[2021-01-19 20:05] LABS: HEMATOCRIT 17.4 % (36-48)
[2021-01-19 20:06] LABS: ALANINE AMINOTRANSFERASE 18 U/L (12-78); ALBUMIN 2.9 g/dL (3.4-4.8); ASPARTATE AMINOTRANSFERASE 16 U/L (10-37); TOTAL BILIRUBIN 0.2 mg/dL (0.0-1.0)
--- NOTE | 2021-01-19 20:40 | NUR ---
ER at bedside examining patient.
--- NOTE | 2021-01-19 20:47 | NUR ---
PT IS UNABLE TO ANSWER WHAT MEDS SHE TAKES. "ITS IN MY PURSE AT HOME". ASKED IF HER DAUGHTER WOULD KNOW TO CALL AND ASK AND SHE REPSONDED NO.
--- NOTE | 2021-01-19 20:52 | NUR ---
# 20 gauge angiocath placed to L FOREARM. Use of asceptic technique. Opsite placed over site. Blood return noted. Blood for lab drawn from site. Flushed with 10 cc of normal saline. No evidence of infiltration noted. Patient tolerated well.
[2021-01-19] MEDS ORDERED: DOXY100C PO (21:52)
[2021-01-19] MEDS ORDERED: METH2.5T PO (21:53)
--- NOTE | 2021-01-19 21:53 | NUR ---
Medication reconciliation completed with information provided by NAHED. Any prior medication reconciliation on file was reviewed and corrected.
--- NOTE | 2021-01-19 21:53 | NUR ---
DAUGHTER CALLED FOR A UPDATE. UPDATE GIVEN PER PATIENTS APPROVAL. PTS MED REC RECIEVED WELL FROM DAUGHTER
--- NOTE | 2021-01-19 21:56 | NUR ---
PT WANTS TO BE DNR
--- NOTE | 2021-01-19 23:33 | NUR ---
Consent signed per NAHED MAHAJAN FOR [facility]BIN HARMS agreeing to administration of blood. Blood has been type and crossmatched. Blood sent from blood bank. Information on unit of blood checked against patient wristband at bedside by two nurses. All information matches. Patient or responsible libertarian informed of potential complications associated with blood transfusion. Informed of possible transfusion reaction symptoms. Aware of need to notify nurse at once of itching, shortness of breath, flushing, feeling of impending doom, or other symptoms not previously present. Vital signs taken within 5 minutes prior to initiation of transfusion. RN will remain with patient for first 15 minutes of transfusion at which time vital signs will be re-assessed.
--- NOTE | 2021-01-20 00:16 | NUR ---
PT IS ASLEEP DURING TRANSFUSION. RESTING AT THIS TIME. NO ALLERGIC REACTION NO COMPLAINTS
--- NOTE | 2021-01-20 01:15 | NUR ---
1 UNIT OF BLOOD TRANSFUSED.
--- NOTE | 2021-01-20 01:30 | NUR ---
Blood has been type and crossmatched. Blood sent from blood bank. Information on unit of blood checked against patient wristband at bedside by two nurses. All information matches. Patient or responsible constitution party informed of potential complications associated with blood transfusion. Informed of possible transfusion reaction symptoms. Aware of need to notify nurse at once of itching, shortness of breath, flushing, feeling of impending doom, or other symptoms not previously present. Vital signs taken within 5 minutes prior to initiation of transfusion. RN will remain with patient for first 15 minutes of transfusion at which time vital signs will be re-assessed.
--- NOTE | 2021-01-20 03:26 | NUR ---
2ND UNIT OF PRBC TRANSFUSED. CBC ORDERED PER DR. SUAREZ
[2021-01-20 04:05] LABS: HEMATOCRIT 24.8 % (36-48); HEMOGLOBIN 7.8 g/dL (12.0-16.0); RED BLOOD CELL COUNT(AUTO) 3.11 MIL/uL (4.2-6.2)
[2021-01-20 04:06] LABS: MEAN CORPUSCULAR HEMOGLOBIN 25 pg (27-31); MEAN CORPUSCULAR VOLUME 80 fL (79.0-98.0)
[2021-01-20 04:07] LABS: MEAN CORPUSCULAR HGB CONC 32 % (32-36); PLATELET COUNT (AUTO) 303 K/uL (130-430); RED CELL DISTRIBUTION WIDTH 22.4 % (9.0-15.0)
[2021-01-20 04:08] LABS: BASOPHILS # (AUTO) 0.1 K/uL (0.0-0.2); BASOPHILS % (AUTO) 1.3 % (0.0-2.0); EOSINOPHILS # (AUTO) 0.2 K/uL (0.0-0.4); EOSINOPHILS % (AUTO) 3.1 % (0.0-4.0); LYMPHOCYTES # (AUTO) 1.8 K/uL (1.0-5.5); MONOCYTES # (AUTO) 0.8 K/uL (0.0-1.0); MONOCYTES % (AUTO) 16.8 % (1.7-9.3); NEUTROPHILS # (AUTO) 2.1 K/uL (1.8-7.7); NEUTROPHILS % (AUTO) 41.8 % (40.0-70.0)
[2021-01-20] MEDS ORDERED: OMEP20CA15 PO (05:42)
[2021-01-20] MEDS ORDERED: FERR324T22 PO (05:42)
--- NOTE | 2021-01-20 07:04 | NUR ---
REPORT RECEIVED FROM ZAINA DOCKERY FOR CONTINUING CARE
--- NOTE | 2021-01-20 07:15 | NUR ---
PT SITTING UP IN [facility], AAOX4, NO DISTRESS, V/S STABLE
--- NOTE | 2021-01-20 07:24 | NUR ---
Patient given written and verbal discharge instructions and verbalizes understanding. ER MD discussed with patient the results and treatment provided. Patient in stable condition. ID arm band removed. Rx of FERROUS GLUCONATE AND OMEPRAZOLE given. Patient educated on pain management and to follow up with PMD. Pain Scale 0/10. Opportunity for questions provided and answered. Medication side effect fact sheet provided.
[2021-01-20 07:39] VITALS: BP_SYST 144
== END 2021-01-20 07:24 | disposition home or self-care (01) ==
LOC: SED 18:38
DX: D64.9 Anemia, unspecified (principal); I10 Essential (primary) hypertension; Z88.0 Allergy status to penicillin; Z79.899 Other long term (current) drug therapy; Z20.822 Contact with and (suspected) exposure to COVID-19
CPT/HCPCS: 36415; 36430; 80053; 82272; 83605; 85025; 85610; 85730; 86886; 86900; 86901; 86920; 87040; 87426; 93005; 99285; P9021